=== PATIENT | female | born 1990 | race African-American/Black ===

== ENCOUNTER 2023-08-07 14:20 | Outpatient (CLI) | payer BC, SELFPAY ==
[2023-08-07 15:09] LABS: Basophils Percent Auto 0.2 % (0.2-1.2); Eosinophils Absolute Auto 0.1 K/mm3 (0-0.3); Eosinophils Percent Auto 1.1 % (0-4.4); Hematocrit 37.6 % (37.0-47.0); Hemoglobin 12.6 g/dL (12.0-15.0); Immature Granulocyte Absolute 0.03 K/mm3 (0.00-0.031); Immature Granulocyte Percent A 0.4 % (0-0.5); Lymphocytes Absolute Auto 2.12 K/mm3 (0.9-3.2); Lymphocytes Percent Auto 26.1 % (18.3-44.2); Mean Corpuscular HGB Conc 33.5 g/dl (32-36); Mean Corpuscular Hemoglobin 32.1 pg (26-34); Mean Corpuscular Volume 95.7 fl (80-100); Mean Platelet Volume 9.2 fl (7.4-10.4); Monocytes Absolute Auto 0.7 K/mm3 (0.1-0.6); Monocytes Percent Auto 8.7 % (2.6-8.5); Neutrophils Absolute Auto 5.2 K/mm3 (1.3-6.7); Neutrophils Percent Auto 63.5 % (45.5-73.1); Platelet Count Result 310 k/mm3 (150-375); Red Blood Count 3.93 M/mm3 (4.2-5.4); Red Cell Distribution Width 12.8 % (11.5-14.5); White Blood Count 8.1 K/mm3 (4.5-10.0)
[2023-08-07 16:03] LABS: HIV 1/2 Ab P24 Ag Result Negative (Negative)
[2023-08-07 16:31] LABS: Hepatitis B Surface Antigen Negative (Negative)
[2023-08-07 16:39] LABS: Hepatitis C Virus Antibody Negative (Negative)
[2023-08-07 18:02] LABS: Rubella IgG Antibody > 110.0 IU/ML
[2023-08-07 20:36] LABS: Hemoglobin A1C 4.8 % (<5.7)
[2023-08-08 15:21] LABS: Rapid Plasma Reagin Non-Reactive (NonReactive)
== END 2023-08-07 14:21 | disposition home or self-care (01) ==
PROVIDERS: PCP Family Medicine; Visit Provider Obstetrics & Gynecology
DX: Z34.82 Encounter for supervision of other normal pregnancy, second trimester (principal)
CPT/HCPCS: 36415; 83036; 85025; 86592; 86703; 86762; 86803; 86850; 86900; 86901; 87340; G0432

== ENCOUNTER 2023-11-21 17:54 | Observation (INO) | payer BC, SELFPAY ==
[2023-11-21 18:25] VITALS: BP 117/73; PULSE 79
[2023-11-21 18:29] VITALS: BMI 32.1
[2023-11-21 18:30] VITALS: BP 112/73; PULSE 88
--- NOTE | 2023-11-21 18:30 | OBADM ---
This patient, Shabbir James, admitted to the OB room OB Post 112 for observation. Patient/family oriented to hospital policies and general routines including ID bracelet, bed and alarms, visiting hours, pain management, procedures, bathroom and other care routines, personal items, smoking policy, room service/diet, and visiting hours. Patient/Family are encouraged to report perceived risks to care and to ask questions if they do not understand what they are told or what they should do.
[2023-11-21 18:42] LABS: Basophils Percent Auto 0.2 % (0.2-1.2); Eosinophils Absolute Auto 0.1 K/mm3 (0-0.3); Eosinophils Percent Auto 1.2 % (0-4.4); Hematocrit 35.2 % (37.0-47.0); Hemoglobin 11.9 g/dL (12.0-15.0); Immature Granulocyte Absolute 0.06 K/mm3 (0.00-0.031); Immature Granulocyte Percent A 0.6 % (0-0.5); Lymphocytes Absolute Auto 2.28 K/mm3 (0.9-3.2); Lymphocytes Percent Auto 23.6 % (18.3-44.2); Mean Corpuscular HGB Conc 33.8 g/dl (32-36); Mean Corpuscular Hemoglobin 33.1 pg (26-34); Mean Corpuscular Volume 97.8 fl (80-100); Mean Platelet Volume 9.5 fl (7.4-10.4); Monocytes Absolute Auto 1.1 K/mm3 (0.1-0.6); Neutrophils Absolute Auto 6.1 K/mm3 (1.3-6.7); Neutrophils Percent Auto 63.4 % (45.5-73.1); Platelet Count Result 286 k/mm3 (150-375); Red Cell Distribution Width 13.4 % (11.5-14.5); White Blood Count 9.7 K/mm3 (4.5-10.0)
[2023-11-21 18:45] VITALS: BP 119/71; PULSE 78
[2023-11-21 18:58] LABS: Alanine Aminotransferase 13 U/L (6-35); Albumin Level 3.5 g/dL (3.5-5.1); Alkaline Phosphatase 80 U/L (38-126); Amylase 91 U/L (30-110); Anion Gap 9 mmol/L (4-12); Aspartate Amino Transferase 24 U/L (14-36); Bilirubin,Total 0.2 mg/dL (0.2-1.3); Blood Urea Nitrogen 12 mg/dL (7-17); Calcium 9.2 mg/dL (8.4-10.2); Carbon Dioxide 22 mmol/L (22-30); Chloride 103 mmol/L (98-107); Estimated CRCL calculation 142 ml/min; Estimated Glomerular Filt Rate > 60; Glucose 94 mg/dL (65-110); Lipase 124 U/L (23-300); Potassium 3.9 mmol/L (3.4-5.0); Sodium 134 mmol/L (137-145)
[2023-11-21 19:00] VITALS: BP 109/67; PULSE 89
--- NOTE | 2023-11-21 19:03 | PC.NURSE ---
Call placed to Madison ROWE with Pt lab results, FHR, CTX, Vitals. Order to discharge pt home undelivered. Per Madison ROWE pt is to go home rest, take tylenol and follow up with .
--- NOTE | 2023-11-21 19:17 | PC.NURSE ---
Pt discharged home undelivered in stable condition per order from Genny Frazier CNM. Discharge instructions given and explained to pt. All questions and concerns answered. Pt waiting for spouse to come and pick her up. All belongings with pt.
--- NOTE | 2023-11-22 12:14 | P.PNOB_ITS ---
OB - Triage/Final Diagnosis Visit Information Date of evaluation: 11/21/23 Reason for evaluation: other (abd pain) Comments/Additional reasons for admission: I have assessed the risk for this patient, Shabbir James, and determined that she would benefit from observation care. Evaluation Laboratory results: Laboratory Tests 11/21/23 18:10 WBC 9.7 RBC 3.60 L Hgb 11.9 L Hct 35.2 L MCV 97.8 MCH 33.1 MCHC 33.8 RDW 13.4 Plt Count 286 MPV 9.5 Immature Gran % (Auto) 0.6 H Neut % (Auto) 63.4 Lymph % (Auto) 23.6 [place] % (Auto) 11.0 H Eos % (Auto) 1.2 Baso % (Auto) 0.2 Lymph # (Auto) 2.28 [place] # (Auto) 1.1 H Eos # (Auto) 0.1 Baso # (Auto) 0.0 Abs Immat Gran (auto) 0.06 H Absolute Neuts (auto) 6.1 Absolute Nucleated RBC 0.000 Nucleated RBC % 0.0 Sodium 134 L Potassium 3.9 Chloride 103 Carbon Dioxide 22 Anion Gap 9 BUN 12 Creatinine 0.60 L Estim Creat Clear Calc 142 Estimated GFR > 60 Glucose 94 Calcium 9.2 Total Bilirubin 0.2 AST 24 ALT 13 Alkaline Phosphatase 80 Total Protein 7.0 Albumin 3.5 Amylase 91 Lipase 124 Vital signs: Vital Signs - 24 hr 11/21/23 18:25 11/21/23 18:30 11/21/23 18:45 Pulse Rate 79 88 78 Blood Pressure 117/73 112/73 119/71 11/21/23 19:00 Pulse Rate 89 Blood Pressure 109/67
== END 2023-11-21 19:20 | disposition home or self-care (01) ==
PROVIDERS: Advanced Practice Midwife; Admitting Provider Obstetrics & Gynecology; PCP Family Medicine; Visit Provider Obstetrics & Gynecology
DX: O26.893 Other specified pregnancy related conditions, third trimester (principal); R10.9 Unspecified abdominal pain; Z3A.31 31 weeks gestation of pregnancy
CPT/HCPCS: 36415; 80053; 82150; 83690; 85025; G0378; G0379

== ENCOUNTER 2024-01-14 20:44 | Inpatient (IN) | payer BC, SELFPAY ==
[2024-01-14] VITALS (26 sets, daily range): BP systolic 98–153; BP diastolic 65–99; PULSE 63–94; TEMP 36.8; O2SAT 99–100; BMI 35.2
[2024-01-14] MEDS: LACTATED RINGERS 1,000 ML 125 ML IV CONT (21:58)
[2024-01-14] MEDS: ONDANSETRON INJ 4 MG/2 ML VIAL IV PUSH (22:05)
[2024-01-14 22:06] LABS: Basophils Percent Auto 0.1 % (0.2-1.2); Eosinophils Absolute Auto 0.1 K/mm3 (0-0.3); Eosinophils Percent Auto 1.1 % (0-4.4); Hematocrit 35.2 % (37.0-47.0); Hemoglobin 11.9 g/dL (12.0-15.0); Immature Granulocyte Absolute 0.02 K/mm3 (0.00-0.031); Immature Granulocyte Percent A 0.2 % (0-0.5); Lymphocytes Absolute Auto 2.53 K/mm3 (0.9-3.2); Lymphocytes Percent Auto 26.2 % (18.3-44.2); Mean Corpuscular HGB Conc 33.8 g/dl (32-36); Mean Corpuscular Hemoglobin 32.8 pg (26-34); Monocytes Absolute Auto 1.4 K/mm3 (0.1-0.6); Neutrophils Absolute Auto 5.6 K/mm3 (1.3-6.7); Neutrophils Percent Auto 58.4 % (45.5-73.1); Platelet Count Result 269 k/mm3 (150-375); Red Blood Count 3.63 M/mm3 (4.2-5.4); Red Cell Distribution Width 13.8 % (11.5-14.5); White Blood Count 9.7 K/mm3 (4.5-10.0)
[2024-01-14] MEDS: AMPICILLIN 2 GM/NS 100 ML 2 GM/100 ML BAG IVPB (22:09)
--- NOTE | 2024-01-14 22:15 | LDADM ---
This patient, Shabbir James, was admitted to Labor/Delivery/Recovery 103 on 01/14/24 at 20:44. Plans for labor, pain management and were discussed with patient. Patient/family oriented to hospital policies and general routines including ID bracelet, bed and alarms, visiting hours, pain management, procedures, bathroom and other care routines, personal items, smoking policy, room service/diet and guest tray routines, infant security routines, and visiting hours. Patient/Family are encouraged to report perceived risks to care and to ask questions if they do not understand what they are told or what they should do. See OBIX for further documentation.
[2024-01-14] MEDS: fentaNYL CITRATE INJ (*CRX) 100 MCG/2 ML VIAL IV PUSH (22:23)
[2024-01-14 22:30] LABS: Rapid Plasma Reagin Non-Reactive (NonReactive)
[2024-01-14 23:05] LABS: HIV 1/2 Ab P24 Ag Result Negative (Negative)
--- NOTE | 2024-01-14 23:10 | WPDANESEPP ---
Anes - Eval Pre Procedure Procedure: Labor rEpidural Date/Time: 01/14/24 23:10 Surgeon: Jefe Preop Diagnosis: Labor pain Pre Op Diagnosis: IOL Patient Data Age: 33 Gender: F Height: 1.73 m Weight: 105 kg Last Vital Signs Pulse 77 01/14/24 23:00 BP 150/91 H 01/14/24 23:00 O2 Del Method Room Air 01/14/24 22:15 Allergies Allergy/AdvReac Type Severity Reaction Status Date / Time No Known Allergies Allergy Verified 12/19/23 13:19 Home Medications Medication Instructions Recorded Confirmed Type ondansetron HCl 4 mg tablet 4 mg PO 4-6XD 11/21/23 12/19/23 History sertraline 50 mg tablet 50 mg PO DAILY 11/21/23 12/19/23 History vits no.126-ferrous fum 1 tablet PO DAILY 12/19/23 12/19/23 History 28 mg iron-folic acid 800 mcg tablet (Classic ) Laboratory Tests 01/14/24 22:00 WBC 9.7 K/mm3 (4.5-10.0) RBC 3.63 L M/mm3 (4.2-5.4) Hgb 11.9 L g/dL (12.0-15.0) Hct 35.2 L % (37.0-47.0) MCV 97.0 fl (80-100) MCH 32.8 pg (26-34) MCHC 33.8 g/dl (32-36) RDW 13.8 % (11.5-14.5) Plt Count 269 k/mm3 (150-375) MPV 10.0 fl (7.4-10.4) Immature Gran % (Auto) 0.2 % (0-0.5) Neut % (Auto) 58.4 % (45.5-73.1) Lymph % (Auto) 26.2 % (18.3-44.2) [place] % (Auto) 14.0 H % (2.6-8.5) Eos % (Auto) 1.1 % (0-4.4) Baso % (Auto) 0.1 L % (0.2-1.2) Lymph # (Auto) 2.53 K/mm3 (0.9-3.2) [place] # (Auto) 1.4 H K/mm3 (0.1-0.6) Eos # (Auto) 0.1 K/mm3 (0-0.3) Baso # (Auto) 0.0 K/mm3 (0.0-0.1) Abs Immat Gran (auto) 0.02 K/mm3 (0.00-0.031) Absolute Neuts (auto) 5.6 K/mm3 (1.3-6.7) Absolute Nucleated RBC 0.000 K/mm3 (0.0-0.012) Nucleated RBC % 0.0 % (0.0-0.2) RPR Non-reactive (NonReactive) HIV 1&2 Ab/P24 Ag 4thGn Negative (Negative) Blood Type A Positive Antibody Screen Negative : gestational age (, SAEED 01/18/24) Patient hx anesthesia problems: none Family hx anesthesia problems: none Results Review: All pre-operative results and documents have been reviewed as part of the pre-operative evaluation. [facility] Family History Family History Grandparent Acute myocardial infarction Grandparent Acute myocardial infarction Social History Social History Smoking status: Never smoker Substance use: never Do You Feel Safe in your Home?: Yes Lack of Transportation: No Lack of Food: Never True Current Housing: I Have Housing Concerned About Future Housing: No Difficulty Paying Gas/Electric Bills: No Difficulty Paying for Meds: No Currently Unemployed: No Education: Bachelor's Degree Difficulty w/ Childcare or Family Care: No Spiritual care concerns: No Exam Day of Procedure 01/14/24 23:10 Patient weight: normal Heart: regular rate and rhythm Lungs: normal air movement Airway: Mallampati scale class II Neurological: alert and oriented
[2024-01-15] VITALS (41 sets, daily range): BP systolic 111–149; BP diastolic 77–96; PULSE 55–141; RESP 16–20; TEMP 36.2–36.6; O2SAT 80–100
[2024-01-15] MEDS: LACTATED RINGERS 1,000 ML 125 ML IV CONT (00:40)
[2024-01-15] MEDS: AMPICILLIN 1 GM/NS 50 ML 1 GM/50 ML BAG IVPB (01:27)
[2024-01-15] MEDS: OXYTOCIN 30 UNITS/NS 500 ML 30 UNITS/500 ML BAG 999 UNITS IV CONT (01:59)
--- NOTE | 2024-01-15 02:08 | WPDOBADMIT ---
Obstetrics - Admit Note Admission Note: record reviewed. No pertinent additions to the history and/or any subsequent changes in the physical findings that are not consistent with the expected course of the were found. Patient presents in spontaneous labor, painful contractions; SVE 4cm on admission, expectant management Additions to the history and/or subsequent changes in the physical findings follow. None.
--- NOTE | 2024-01-15 02:09 | PM.OBPRVD ---
OB - Vaginal Delivery Note Procedure Delivery date: 01/15/24 Induction method: None Delivery monitor: External FHT and External Uterine Route of delivery: Episiotomy description: None Laceration Description: Perineal - 1st Degree (hemostatic) Specimen: No Anesthesia type: Epidural Disposition: Floor Complications: No immediate complications Narrative: See H&P and notes for details on patient's admission and labor. She progressed to complete cervical dilation and at the appropriate time began pushing. With adequate expulsive efforts by the mother, the baby's head was delivered without difficulty. Nuchal cord was not present. The baby's left shoulder was anterior and delivered under the pubic symphysis without difficulty. The posterior shoulder and the rest of the baby delivered without difficulty. The umbilical cord was doubly clamped and cut after 60 seconds of delayed cord clamping. Care of the infant was then assumed by the nursing staff. [place] Baby Date of : 01/15/24 Gestational Age by Date: 39 Infant gender: Female presentation: vertex position: Left Occiput Anterior Placenta delivery description: Expressed Cord Vessel Description: 3 Vessels and Delayed Cord Clamping
[2024-01-15] MEDS: OXYTOCIN 30 UNITS/NS 500 ML 30 UNITS/500 ML BAG 125 UNITS IV CONT (02:33)
[2024-01-15] MEDS: BENZOCAINE 20% AER SPR (*SP) 56 GM CAN 1 SPRAY TOPICAL (03:54)
[2024-01-15] MEDS: IBUPROFEN 600 MG TABLET PO ×3 (04:32→17:49)
[2024-01-15] MEDS: ACETAMINOPHEN 325 MG TABLET 650 MG PO ×3 (04:32→17:48)
--- NOTE | 2024-01-15 04:50 | PC.NURSE ---
0345- pt arrived from per WC with RN Urvashi to room 283, pt assited to bed without difficulty, left leg somewhat weak, instructed pt to not get up oob with out the assist of RN, call parra withibn reach
[2024-01-15] MEDS: MULTIVIT/MIN/PREN/FOL AC/IRON TABLET 1 TAB PO (10:24)
--- NOTE | 2024-01-15 11:00 | PC.NURSE ---
Introductions were made, then consulted with patient to assess needs related to . Discussed with mother her?plans to feed?her and the?experience so far. She says so far she doesn't have pain or any difficulties latching. She will call for a feeding check after visitors leave. Resources provided for inpatient and outpatient services with the feeding sheet, mom/baby guide and name/number written on the communication board. Mother voiced understanding of information and will call if there is a request for assistance. Reported to the Primary RN.
[2024-01-16 04:25] LABS: Hematocrit 34.5 % (37.0-47.0); Hemoglobin 11.4 g/dL (12.0-15.0)
[2024-01-16] MEDS: IBUPROFEN 600 MG TABLET PO (07:36)
[2024-01-16] MEDS: SERTRALINE HCL 50 MG TABLET PO (07:36)
[2024-01-16] MEDS: MULTIVIT/MIN/PREN/FOL AC/IRON TABLET 1 TAB PO (07:36)
[2024-01-16 07:45] VITALS: BP 119/84; PULSE 59; RESP 16; TEMP 37.2; O2SAT 100
--- NOTE | 2024-01-16 11:10 | PC.NURSE ---
Consulted with mother concerning needs and she shared her ability to independently latch infant optimally without pain. She states that the latch is good but that is less interested in since she has started supplementing with formula. We did try to latch baby but she was sleepy and didn't open wide to latch. We discussed the differences between breast and bottle and how bottle flows easily and faster. Encouraged consistently putting baby to breast if that is what her goal is an/or pumping to continue providing breast stimulation. She has a history of low milk production with her first baby but doesn't identify any risk factors for hormonal insufficiency. She pumped with her first baby for 2 months and was happy for baby to get whatever breast milk he could. She has a pump at home through her insurance. She has concerns about its efficiency, she thinks it is a Motif. Discussed how pump technology has advanced and she can use their web site and videos for use instructions and tips. If it doesn't seem to be working well, she knows we have rental pumps available. We discussed that being on a consistent schedule is the most important thing she can do to stimulate her breasts regularly for the best milk production. Mother is feeding appropriately for growth of infant and understands stimulating to eat if needed. Infant has had appropriate feedings in the last 24 hours meets the outcomes for weight, output, blood sugar and jaundice at this time. Reinforced understanding of milk production, transition of milk, signs of adequate intake, transition of stool, prevention/relief of engorgement, plugged ducts, mastitis, responsive watching for feeding cues, the different methods of stimulating to breastfeed 1-3 hours after the start of the last feeding, community resources, and when to call a provider using the resource of the feeding sheet along with the mom and baby guide. Mother voiced understanding of the information shared, is confident to continue effectively her at home, when to call for assistance, denies any additional assistance or education at this time. Reported to the Primary RN.
--- NOTE | 2024-01-16 13:04 | PM.OBPNVD ---
OB - PN: Subj Subjective Date/time seen: 01/16/24 13:04 Interval history: PPD#1 Doing well, pain controlled Voiding without issue Breast/bottle, doing well Ready for discharge home OB - PN: Obj Data Labs 01/16/24 03:49 Labs: Laboratory Results - last 24 hr 01/16/24 03:49 Hgb 11.4 L Hct 34.5 L OB - PN A/P Assessment and Plan (1) (spontaneous vaginal delivery): Code(s): O80 - Encounter for full-term uncomplicated delivery Status: Acute Plan day: 1 Plan: routine care and discharge home Time Spent With Patient Time: Total time spent is greater than 50% in coordination of care (as documented) at patient's floor/unit and/or counseling patient: Review of Systems Review of Systems: All systems reviewed & are unremarkable except as noted in HPI and below Exam Const: General: comfortable and no acute distress Orientation/consciousness: patient oriented x3 Resp: Effort & Inspection: normal respiratory effort
--- NOTE | 2024-01-16 13:08 | PM.OBDSVD ---
DS: Admitting Diagnosis Discharge Date 01/16/24 Admitting Diagnosis labor DS: Discharge Diagnosis Discharge Diagnosis (1) (spontaneous vaginal delivery): Code(s): O80 - Encounter for full-term uncomplicated delivery Status: Acute OB - DS: Summary OB Procedures : None OB Procedures Intrapartum: Spontaneous Vag Delivery OB Procedures: : None Peripartum Data Laceration Description: Perineal - 1st Degree (hemostatic) Episiotomy description: None Time Spent with Patient Time attestation: Total time spent providing and/or coordinating discharge services: DS: Data Data Completed and Pending Labs on day of discharge: Labs from last 24 hours 01/16/24 03:49 Hgb 11.4 L Hct 34.5 L Discharge Plan Discharge Attending physician on discharge: Sina Mayberry Discharging Clinician: Sina Mayberry Patient Disposition: Home, Self-Care Activity: no shower, as tolerated and pelvic rest Diet: as tolerated Patient Instructions: Antibiotic Form Stand Alone Forms: General Discharge Information Follow-up/Referrals: Sina Mayberry MD [Physician] - 4 Weeks Discharge Medications: New docusate sodium 100 mg Capsule 100 mg PO BID PRN (Reason: Constipation) Qty: 60 0RF ibuprofen 600 mg Tablet 600 mg PO Q6H PRN (Reason: Cramping) Qty: 30 0RF Continued ondansetron HCl 4 mg tablet 4 mg PO 4-6XD sertraline 50 mg tablet 50 mg PO DAILY Classic 28 mg iron- 800 mcg Tablet 1 tablet PO DAILY Date of admission: 01/14/24 20:44 Primary Care Provider: SUSHILAFREDRICK Admitting Provider: Sina Mayberry Attending physician on admission: Sina Mayberry Condition: Stable
[2024-01-17 15:28] VITALS: BP 134/82; PULSE 63; RESP 16; TEMP 36.6; O2SAT 100
== END 2024-01-16 14:11 | disposition home or self-care (01) | DRG 807 ==
LOC: ANHLDR 22:06 → ANHOB2 01-15 04:19
PROVIDERS: Admitting Provider Obstetrics & Gynecology; PCP Family Medicine; Visit Provider Obstetrics & Gynecology
DX: O69.81X0 Labor and delivery complicated by cord around neck, without compression, not applicable or unspecified (principal); Z37.0 Single live birth; Z3A.39 39 weeks gestation of pregnancy; O70.0 First degree perineal laceration during delivery
CPT/HCPCS: 36415; 85014; 85018; 85025; 86592; 86703; 86850; 86900; 86901; A9270; G0432; J0290; J2405; J2590; J2795; J3010; J7120

== ENCOUNTER 2024-04-07 02:18 | Day surgery (SDC) | payer BC, SELFPAY ==
[2024-04-01 09:36] VITALS: BMI 34.4
--- NOTE | 2024-04-01 09:42 | PC.NURSE ---
Report to the Outpatient Waiting Room, entrance under the green pavilion located off [facility], at time _1000_ on date _[id number]_. Planned Procedure Time: _1200_.? Time changes happen often and if your time is changed the preop area will call you the afternoon before. - You and your visitor will be asked to self-screen and do not enter if you have any COVID symptoms. Please call surgeon if you need to reschedule. - A mask is optional within the hospital at this time. Patients may have clear liquids (water, carbonated beverages, clear teas, apple juice) until 3 hours prior to surgery with a maximum of 20 ounces. - No food from midnight until time of surgery and no smoking. This includes no chewing gum, candy or mints. Take only the following medications with a SIP of water on the morning of surgery: ___None____ DO NOT STOP ANY OF YOUR OTHER PRESCRIPTION MEDICATIONS PRIOR TO SURGERY EXCEPT THE FOLLOWING Medications to discontinue per physician ____Vitamin Date to take last lfwl___[phone]____ Please no make-up, nail frisian, hairspray, perfume, deodorant, or body powder the day of surgery.? No jewelry (including any body piercings) or valuables the day of surgery, leave them at home.? Please take a shower or bath the night before, or the morning of, surgery with an antibacterial soap.? Wear comfortable, loose fitting clothing.? - Jewelry must be removed prior to entering the operating room.? Rings and piercings that are not removed may be cut off. - The hospital will not accept responsibility for valuables.? - Please leave all valuables, including medications, at home the day of surgery. If you are going home after surgery, a licensed line haul truck driver must drive you home.? - NO public transportation without another adult if you receive anesthesia. - We recommend that an adult stay with you for 24 hours following discharge. - We also recommend that you do not drive, make important decision, drink alcoholic beverages, or take any drugs that were not prescribed by your health care provider for at least 24 hours after your discharge time. Follow any additional instructions given to you from your surgeon. Telephone instructions given to __Shabbir__and asked if any additional questions and then verbalized understanding. Patient advised to call surgeon office or pre surgery nurse liaison [phone] if any additional questions.
[2024-04-07] VITALS (13 sets, daily range): BP systolic 113–140; BP diastolic 70–100; PULSE 73–100; RESP 12–18; TEMP 36.1–36.2; O2SAT 95–100
--- NOTE | 2024-04-07 08:06 | P.PNAN_ITS ---
Anes - Initial Pre Proc Eval Procedure: Operation Date: 04/07/24 10:00 Proposed Procedures p Laparoscopic Bilateral Salpingectomy - Sina Mayberry MD Date/Time: 04/07/24 08:06 Surgeon: Sina Mayberry MD Pre Op Diagnosis: desires sterilization Patient Data Age: 33 Gender: F Height: 1.74 m Weight: 104.5 kg Allergies Allergy/AdvReac Type Severity Reaction Status Date / Time No Known Allergies Allergy Verified 04/07/24 08:14 Home Medications ?Medication ?Instructions ?Recorded ?Confirmed ?Type sertraline 50 mg tablet 50 mg PO DAILY 11/21/23 04/01/24 History vits no.126-ferrous fum 1 tablet PO DAILY 12/19/23 04/01/24 History 28 mg iron-folic acid 800 mcg tablet (Classic ) clonazepam 1 mg tablet 1 mg PO HS 04/01/24 04/01/24 History drospirenone (contraceptive) 4 mg 1 tablet PO HS 04/01/24 04/01/24 History (28) tablet (Slynd) Patient hx anesthesia problems: none Family hx anesthesia problems: none Results Review: All pre-operative results and documents have been reviewed as part of the pre- operative evaluation. [facility] Family History Family History Grandparent Acute myocardial infarction Grandparent Acute myocardial infarction Social History Social History Smoking status: Never smoker Alcohol intake: current Substance use: never Do You Feel Safe in your Home?: Yes Lack of Transportation: No Lack of Food: Never True Current Housing: I Have Housing Concerned About Future Housing: No Difficulty Paying Gas/Electric Bills: No Difficulty Paying for Meds: No Currently Unemployed: No Education: Bachelor's Degree Difficulty w/ Childcare or Family Care: No Living arrangements: with family Spiritual care concerns: No Anes - Eval Final PreProcedure Day of Procedure 04/07/24 08:06 Patient weight: obese Heart: regular rate and rhythm Lungs: clear to auscultation Airway: Mallampati scale class II Neurological: alert and oriented Last oral intake: >/= 8 hours ASA classification: II Emergent: no Anesthetic plan: proceed Anesthesia type and monitoring: general ETT and standard monitoring Results Review: All pre-operative results and documents have been reviewed as part of the pre- operative evaluation. Informed Consent: The patient's anesthetic plan and its attendant risks and benefits were discussed with the patient/family/POA. Questions were solicited and answers pro vided to the satisfaction of the patient/family/POA.
--- NOTE | 2024-04-07 08:32 | PM.IMHP ---
H&P: HPI History of Present Illness Date/Time: 04/07/24 08:32 Chief Complaint: desires sterilization Narrative: Patient is a 33 year old female who presents for laparoscopic bilateral salpingectomy. She has completed her childbearing and desires permanent sterilization. She understands this procedure is not reversible. Denies nausea, vomiting, diarrhea, constipation, or dysuria. Review of Systems Review of Systems: All systems reviewed & are unremarkable except as noted in HPI and below PMFSH Family History Family History Grandparent Acute myocardial infarction Grandparent Acute myocardial infarction Social History Social History Smoking status: Never smoker Alcohol intake: current Substance use: never Do You Feel Safe in your Home?: Yes Lack of Transportation: No Lack of Food: Never True Current Housing: I Have Housing Concerned About Future Housing: No Difficulty Paying Gas/Electric Bills: No Difficulty Paying for Meds: No Currently Unemployed: No Education: Bachelor's Degree Difficulty w/ Childcare or Family Care: No Living arrangements: with family Spiritual care concerns: No Meds Home Medications and Allergies Home Medications ?Medication ?Instructions ?Recorded ?Confirmed ?Type sertraline 50 mg tablet 50 mg PO DAILY 11/21/23 04/07/24 History vits no.126-ferrous fum 1 tablet PO DAILY 12/19/23 04/07/24 History 28 mg iron-folic acid 800 mcg tablet (Classic ) clonazepam 1 mg tablet 1 mg PO HS 04/01/24 04/07/24 History drospirenone (contraceptive) 4 mg 1 tablet PO HS 04/01/24 04/07/24 History (28) tablet (Slynd) Allergies Allergy/AdvReac Type Severity Reaction Status Date / Time No Known Allergies Allergy Verified 04/07/24 08:14 Vital Signs Vital Signs - 24 hr 04/07/24 08:10 Temperature 97 F L Pulse Rate 85 Respiratory Rate 18 Blood Pressure 119/78 Pulse Oximetry 99 Oxygen Delivery Room Air Exam Const: General: comfortable and no acute distress HENMT: Mouth: Yes moist mucous membranes Resp: Effort & Inspection: normal respiratory effort Cardio: Rate: regular rate Skin: General skin exam: normal color Extrem: General: normal to inspection Psych: Mental Status: mental status grossly normal Assessment and Plan Assessment and plan (1) Encounter for sterilization: Code(s): Z30.2 - Encounter for sterilization Status: Acute Assessment and Plan: - patient has completed childbearing and desires permanent sterilization - discussed procedure is not reversible; patient voices understanding - will proceed with laparoscopic bilateral salpingectomy
--- NOTE | 2024-04-07 08:43 | WPDHPUPDATE1 ---
History and Physical Update Update Date/Time: 04/07/24 08:43 History and Physical has been reviewed, including an updated exam of the patient. There are NO changes in the patient's condition. Risks, benefits, and alternatives have been discussed and questions answered. Patient agrees to proceed with procedure.
[2024-04-07] MEDS: ACETAMINOPHEN 500 MG TABLET 1000 MG PO (09:00)
[2024-04-07 09:03] LABS: BEDSIDEPREGUCG Negative (Negative)
[2024-04-07] MEDS: KETOROLAC 15 MG/ML VIAL (*BKC) IV PUSH (09:15)
[2024-04-07] MEDS: LACTATED RINGERS 1,000 ML 30 ML IV CONT ×2 (09:15→11:45)
--- NOTE | 2024-04-07 10:31 | P.OP_ITS ---
Procedure Note - Detailed Date of Procedure 04/07/24 Pre-op Diagnosis desires sterilization Post-op Diagnosis Same Procedure Performed laparoscopic bilateral salpingectomy Surgeon Sina Mayberry MD Anesthesia General Findings Normal appearing uterus, bilateral fallopian tubes and ovaries Description of Procedure With IV fluids infusing, the patient was taken to the operating room. The patient was placed in supine position. General anesthesia with endotracheal in tubation was given. A time-out took place. The patient was placed in dorsal lithotomy position using Kade stirrups and she was prepped and draped in the usual sterile fashion. The bladder was drained using a red rubber catheter. A sterile speculum was placed vaginally, the anterior lip of the cervix was grasped with a single-tooth tenaculum and the acorn uterine manipulator was placed without difficulty. The speculum was removed. The surgeon's gloves were changed and attention was turned to the abdomen. A 5 mm incision was made in the umbilicus. Under direct visualization with the scope, the umbilical port was inserted without difficulty. Another two trocars were placed under direct visualization in the left upper and lower quadrants. Just prior to placement of the left lower quadrant port, the inferior epigastric vessels were seen in the trajectory of the trocar. The trocar was removed, no injury to inferior epigastric vessels, and another incision was made avoiding the vessels. The trocar was then placed without issue. The patient was placed in Trendelenburg and inspection of the pelvis noted the above findings. Appropriate pictures were taken. Using the LigaSure devise, a left salpingectomy was performed in the usual fashion. Care was taken to avoid the IP ligament. The salpingectomy went smoothly. The same procedure was repeated on the right side. The instruments were all removed from the abdomen and the CO2 gas was allowed to escape. The four skin incisions were reapproximated with 4-0 Polysorb in a subcuticular manner, followed by skin glue. The acorn manipulator and single tooth tenaculum was removed from the uterus and cervix, respectively. The tenaculum sites were hemostatic. All instruments were removed from the vagina. At the end of the case, instrument, sponge and needle counts were correct x 2. The patient was awakened from general anesthesia and was taken to PACU in stable condition. Estimated Blood Loss 5 Pathology Yes Complications No immediate complications Condition Stable Disposition Same day
[2024-04-07] MEDS: fentaNYL CITRATE INJ (*CRX) 100 MCG/2 ML VIAL 25 MCG IV PUSH ×8 (10:58→11:21)
[2024-04-07] MEDS: HYDROmorphone HCL INJ (*CRX) 1 MG/ML SYR 0.5 MG IV PUSH ×4 (11:35→11:55)
[2024-04-07] MEDS: oxyCODONE HCL (*CRX) 5 MG TAB IR PO (12:25)
--- OUTSIDE RECORDS SUMMARY | 2024-04-10 11:13 | XMS_ITS | Encounter Summary ---
Author Organization [facility] Address [address] [place] [address]. [place] [address] [place] [address] Care Team Providers Care Shellfish Sorter Name Role Phone Eladio Garcia MD Primary Care Provider + Encounter Details Date Type Department Care Team (Late st Contact Info) Description 11/30/2020 Design Clinicals Message [facility] [address] [place] [address] [place], [facility] Provider referral Social History Tobacco Use Types Packs/Day Years Used Date Smoking Tobacco: Never Smokeless Tobacco: Never Alcohol Use Standard Drinks/Week Comments Yes 0 (1 standard drink = 0.6 oz pur e alcohol) occasionally PHQ-2 Answer Date Recorded PHQ-2 Score - If the patient scores above 3, please move on to questions 3-9 6 08/11/2020 Comments No Sex and Gender Information Value Date Recorded Sex Assigned at Not on file Legal Sex Female 7:31 PM CDT Gender Identity Not on file Sexual Orientation Not on file documented as of this encounter Plan of Treatment Not on file documented as of this encounter Visit Diagnoses Not on filedocumented in this encounter Additional Health Concerns Assessment Noted Time PHQ-9 Depression Total Score: 20 021 4:14 PM CDT documented as of this encounter Care Teams Shellfish Sorter Relationship Specialty Start Date End Date Eladio Garcia MD [address] [place] [address] PCP - General FAMILY PRACTICE 02/08/18 documented as of this encounter
--- OUTSIDE RECORDS SUMMARY | 2024-04-10 11:13 | XMS_ITS | Encounter Summary ---
Author Organization [facility] Address [address] [place] [address]. [place], [place] [id number] [place] [address] Care Team Providers Care Physician/Allergy/Immunology Name Role Phone Eladio Garcia MD Primary Care Provider + Encounter Details Date Type Department Care Team (Late st Contact Info) Description 05/23/2022 Schedulize Message [facility] [address] [place] [address] Eladio Garcia MD [address] [place] [address] Weight loss meds Social History Tobacco Use Types Packs/Day Years Used Date Smoking Tobacco: Never Smokeless Tobacco: Never Alcohol Use Standard Drinks/Week Comments Yes 0 (1 standard drink = 0.6 oz pur e alcohol) occasionally PHQ-2 Answer Date Recorded Patient Health Questionnaire-2 Score 0 05/15/2022 Comments No Sex and Gender Information Value Date Recorded Sex Assigned at Not on file Legal Sex Female 7:31 PM CDT Gender Identity Not on file Sexual Orientation Not on file COVID-19 Exposure Response Date Recorded In the last 10 days, have yo u been in contact with someone who was confirmed or suspected to have Coronavirus/COVID-19? No / Unsure 05/15/2022 1:54 PM CURRENCY EXAMINER documented as of this encounter Progress Notes * Iraida Reyes MA - 05/24/2022 2:14 PM CST Script sent to [facility] in [place] and patient informed. ENCY EXAMINER documented in this encounter Plan of Treatment Not on file documented as of this encounter Visit Diagnoses Not on filedocumented in this encounter Additional Health Concerns Assessment Noted Time PHQ-9 Depression Total Score: 0 02/29/20 21 10:07 AM CURRENCY EXAMINER documented as of this encounter Care Teams Physician/Allergy/Immunology Relationship Specialty Start Date End Date Eladio Garcia MD [address] [address] PCP - General FAMILY PRACTICE 02/08/18 documented as of this encounter
--- OUTSIDE RECORDS SUMMARY | 2024-04-10 11:13 | XMS_ITS | Clinical Summary ---
Author Organization [facility] Address [facility] [facility] [place] [address] [place] [address] Care Team Providers Care Health Assistant Name Role Phone Eladio Garcia MD Primary Care Provider + Allergies Active Allergy Reactions Criticality Noted Date Comments Buspirone Rash Low 10/19/2014 Medications ondansetron (ZOFRAN) 4 MG tablet take 1 tablet by mouth every 4 to 6 hours 4 Active sertraline (ZOLOFT) 50 MG tabletIndicatio ns:Mood disorder (CMS/HCC) Take 1 tablet (50 mg total) by mouth daily. 90 tablet 1 4 Active clonazePAM (KLONOPIN) 1 MG tabletIndicatio ns:Primary insomnia Take 1 tablet (1 mg total) by mouth nightly as needed for Anxiety. 30 tablet 5 Active semaglutide-herber ght management (WEGOVY) 0.25 mg/dose injection (PEN)Indication s:Weight Loss Inject 0.25 mg into the skin once a week. Indications: Weight Loss 2 mL 5 Active tirzepatide (MOUNJARO) 2.5 MG/0.5ML injectionIndica tions:Diabetes Mellitus Inject 2.5 mg into the skin every 7 days. Indications: Diabetes 2 mL 5 04/02/19 25 Discontinu ed(Insuran ce denial) Active Problems Problem Noted Date Diagnosed Date Infertility due to oligo-ovulation 05/15/2022 Mood disorder 10/26/2021 Anxiety disorder, unspecified 07/17/2016 Resolved Problems Problem Noted Date Diagnosed Date Resolved Date Perianal mass 08/20/2020 08/31/2020 Encounters Date Type Department Care Team Description 04/02/2024 MyChart Message [facility] [place] [id number] [place] [address] Eladio Garcia MD Insurance declined 03/27/2024 10:20 AM VIAL GAUGER Office Visit [place] [address] [place] [address] Eladio Garcia MD Weight Problem (Weight loss and sleep problem ) 03/27/2024 Travel 01/16/2024 Scan [facility] Scanned, [facility] 01/14/2024 Scan [facility] Scanned, [facility] from Last 3 Months Immunizations Name Administration Dates Next Due HPV 05/18/2008,01/27/2008,11/21/2007 MMR 06/01/2008 Tdap (Generic) 07/12/2015,03/17/2013 Family History Medical History Relation Comments Diabetes Maternal Grandfather Heart Disease Maternal Grandfather Heart Disease Maternal Grandmother Asthma Mother Hypertension Mother Diabetes Paternal Grandfather Relation Status Comments Maternal Grandfather Maternal Grandmother Mother Paternal Grandfather Social History Tobacco Use Types Packs/Day Years Used Date Smoking Tobacco: Never Smokeless Tobacco: Never Tobacco Cessation:Counseling Given: Not Answered Alcohol Use Standard Drinks/Week Comments Yes 0 (1 standard drink = 0.6 oz pur e alcohol) occasionally PHQ-2 Answer Date Recorded Patient Health Questionnaire-2 Score 0 03/27/2024 Comments No Sex and Gender Information Value Date Recorded Sex Assigned at Not on file Legal Sex Female 7:31 PM CDT Gender Identity Not on file Sexual Orientation Not on file Last Filed Vital Signs Vital Sign Reading Time Taken Comments Blood Pressure 112/64 03/27/2024 10:33 AM VIAL GAUGER Pulse 71 03/27/2024 10:33 AM VIAL GAUGER Temperature 36.7 ??C (98.1 ??F) 03/27/2024 1 0:33 AM VIAL GAUGER Respiratory Rate 20 03/27/2024 10:3 3 AM VIAL GAUGER Oxygen Saturation 97% 03/27/2024 10: 33 AM VIAL GAUGER Inhaled Oxygen Concentration - - Weight 106.8 kg (235 lb 6.4 oz) 025 10:33 AM VIAL GAUGER Height 175.3 cm (5' 9 ) 03/27/2024 10:3 3 AM VIAL GAUGER Body Mass Index 34.76 03/27/2024 10:33 AM VIAL GAUGER Plan of Treatment Health Maintenance Due Date Last Done Comments Annual Physical 1993 Hepatitis B Vaccines (1 of 3 - 19+ 3-dose series) 2009 COVID-19 Vaccine (2023-2 5 season) 2023 Influenza Adult (#1) 2023 PHQ-2 (Physician [place]) 03/27/2025 03/27/2024 DTaP, Tdap and Td Vaccines ( 3 - Td or Tdap) 07/11/2025 07/12/2015, 03/17/2013 Cervical Cancer Screening Pa p Smear (Age 30 to 64) Every 3 Years 12/27/2026 12/28/2023 Cervical Cancer Screening Pa p with HPV Testing (Age 30 to 64) Every 5 Years 12/27/2028 12/28/2023 Cervical Cancer Screening wi th HPV 12/27/2028 HPV Vaccines Completed 05/18/2008, 01/27/2008, 11/21/2007 Hepatitis C Completed 08/07/2023 Meningococcal B Vaccine Aged Out No l onger eligible based on patient's age to complete this topic Meningococcal Vaccine Aged Out No amrit eneida eligible based on patient's age to complete this topic Pneumococcal Vaccine: Pediatrics (0 to 5 Years) and At-Risk Patients (6 to 64 Years) Aged Out No longer eligible b ased on patient's age to complete this topic RSV Immunizations Under 20 Months Aged Out No longer eligible b ased on patient's age to complete this topic Procedures Procedure Name Priority Date/Time Associated Diagnosis Comments HEP C SCANNED ORDERS Routine 08/07/2023 from Last 3 Months or Most Recently Relevant to Health Maintenance Results * HEP C SCANNED ORDERS (08/07/2023) [facility] Scanned SCANNING Final Resu lt [facility] from Last 3 Months or Most Recently Relevant to Health Maintenance Insurance [facility] Care Teams Health Assistant Relationship Specialty Start Date End Date Eladio Garcia MD [address] [facility] [address] [place] [id number] PCP - General FAMILY PRACTICE 02/08/18
--- OUTSIDE RECORDS SUMMARY | 2024-04-10 11:13 | XMS_ITS | Data Portability ---
Author Organization [facility], [facility] Address [address] [place] [address] Care Team Providers Care Personnel Security Assistant Name Role Phone FREDRICK BHAT Primary Care Provider Assessment Encounter Date Assessment Date Assessment LastModified by Organization Details LastModified Time 01/04/2024 01/04/2024 Patient is __37_weeks . Discussed plan. Not available 01/04/2024 10:46:42 Plan of Treatment Reminders Order Date Submit Date Provider Last Modified By Organization Details Last Modified Time Details Appointments SURG POST OP 2024 08:45A Ronald GALVAN MD Not available Not available Not available Lab None recorded. Referral None recorded. Procedures None recorded. Surgeries salpingec cristina, laparosco pic (SURG) 2023 024 [facility] [facility], [facility] [address], [address], 03/06/2024 15:14:07 Imaging None recorded. Medication Orders None recorded. Patient TargetsNo targets recorded. Patient InstructionsNo instructions recorded. Reason for Referral None Reported. Results Created Date Observation Date Name Description Value Unit Range Abnormal Flag Note LastModifiedBy Organization Detail LastModifiedTime 12/28/19 24 12/28/2023 CULTU RE: URINE result report SEE RESULT S BELOW Test: Cultu re: Urine Speci men Sourc e: Urine - Clean Catch Speci men Type: Urine Speci men Date: 12/27 1335 Resul t Date: 12/29 0610 Resul t Statu s: Final resul t Abnor mal: No Resul ting Lab: [facility] [address] [facility] [address] Tel: CULTU RE ----- ----- ----- --- No growt h in 1 day (dete ction level of 10,00 0 colon ies / ml.) Not Available [facility] (Lab) [address] [facility], [place], [address], 12/31/2023 12:38:24 12/28/19 24 12/28/2023 CT/GC AND TRICH OMONA S VAGIN AYESHA (RRNA ), URINE chlamydia trachomatis, PCR Negati ve negati ve Not Available [facility] (Lab) [address] [facility], [place], [address], 12/31/2023 12:38:24 12/28/19 24 12/28/2023 CT/GC AND TRICH OMONA S VAGIN AYESHA (RRNA ), URINE neisseria gonorrhoeae, PCR Negati ve negati ve Not Available [facility] (Lab) [address] [facility], [place], [address], 12/31/2023 12:38:24 12/28/19 24 12/28/2023 CT/GC AND TRICH OMONA S VAGIN AYESHA (RRNA ), URINE trichomonas vaginalis ribosomal RNA (rrna) Negati ve negati ve Not Available [facility] (Lab) [address] [facility], [place], [address], 12/31/2023 12:38:24 12/28/19 24 12/28/2023 CULTU RE: GROUP B STREP SCREE N, REFLE X SUSCE PTIBI LITY result report SEE RESULT S BELOW abnormal Test: Cultu re: Group B Strep , Refle x Susce ptibi lity ([facility]/ [facility] ) Speci men Sourc e: Vagin a/Rec randall Speci men Type: Vagin al/Re ctal Speci men Date: 12/27 1334 Resul t Date: 01/01 1544 Resul t Statu s: Final resul t Abnor mal: Yes Resul trino Lab: [facility] [address] [facility] [address] Tel: CULTU RE ----- ----- ----- --- Posit neha for Strep tococ cus agala ctiae (Grou p B) (Abno rmal) Clind amyci n = resis tant, eryth romyc in = resis tant. Cefaz lilia may be used for intra partu m proph ylaxi s in penic illin -justino rgic women at low risk, and Vanco mycin is recom darshan d for women at high risk for anaph ylaxi s. Jelly tom ng is not neces norris for these drugs . Not Available [facility] (Lab) [address] [facility], [place], [address], 01/02/2024 16:47:26 12/28/19 24 12/28/2023 drug scree n, urine Amphetamines : negati ve Not Available [place] [address], [place], [address], 12/28/2023 12:23:51 12/28/19 24 12/28/2023 drug scree n, urine Cannabinoids : negati ve Not Available [facility] [address], [place], [address], 12/28/2023 12:23:51 12/28/19 24 12/28/2023 drug scree n, urine Cocaine: negati ve Not Available [facility] [address], [place], [address], 12/28/2023 12:23:51 12/28/19 24 12/28/2023 drug scree n, urine Opiates: negati ve Not Available [facility] [address], [place], [address], 12/28/2023 12:23:51 12/28/19 24 12/28/2023 drug scree n, urine Phenocyclidi ne: negati ve Not Available [facility] [address], [place], [address], 12/28/2023 12:23:51 12/28/1912/28/2023 drug scree n, urine Barbiturates : negati ve Not Available [facility] [address], [place], [address], 12/28/2023 12:23:51 12/28/1912/28/2023 drug scree n, urine Benzodiazepi elmer: negati ve Not Available [facility] [address], [place], [address], 12/28/2023 12:23:51 12/28/1912/28/2023 drug scree n, urine Ethanol: negati ve Not Available [facility] [address], [place], [address], 12/28/2023 12:23:51 12/28/1912/28/2023 drug scree n, urine Hallucinogen s: negati ve Not Available [facility] [address], [place], [address], 12/28/2023 12:23:51 12/28/1912/28/2023 drug scree n, urine Inhalants: negati ve Not Available [facility] [address], [place], [address], 12/28/2023 12:23:51 12/28/1912/28/2023 drug scree n, urine Anabolic Steroids: negati ve Not Available [facility] [address], [place], [address], 12/28/2023 12:23:51 12/28/19 24 12/28/2023 drug scree n, urine Other: negati ve Not Available [facility] [address], [place], [address], 12/28/2023 12:23:51 12/28/1912/28/2023 US, obste tric, follo w-up No observ ation record ed. [email or web address] [place] [address], [place], [address], 12/28/2023 17:17:53 12/28/1912/28/2023 US, obste tric, follo w-up No observ ation record ed. [email or web address] [address], [place], [address], 12/31/2023 10:37:45 01/11/20 24 01/11/2024 US, obste tric, limit ed No observ ation record ed. [email or web address] [address], [place], [address], 01/12/2024 18:01:24 Result Notes None recorded. Problems Name Problem SNOMED Code Status Onset Date Resolution Date Notes Provider Name and Address Organization Details Recorded Time Pregnanc y 94836822 Completed 202301/21/2024 Gonsalo coates, [facility] 4 14:34:27 Low lying placenta 665593569 Completed 2023 RESOLVED Belia coates [facility] 4 11:10:06 Anxiety in pregnanc y 24705327950 109 Completed sertrali ne 50mg Belia [facility] 4 11:10:06 Marginal insertio n of umbilica l cord 15238930 Completed serial growth Belia coates [facility] 4 11:10:06 Marginal insertio n of umbilica l cord 25849239 Active serial growth Belia coates [facility] 4 11:10:06 Anxiety in pregnanc y 95114835823 109 Active sertrali ne 50mg Belia coates [facility] 4 11:10:06 Problem Notes None recorded. Procedures Surgical History Date Name Laterality Status Provider Name and Address Organization Details Recorded Time 2022 Date of Last Pap Smear completed Elina Lanza [facility] 06/12/2023 12:57:56 2021 biopsy of rectum completed [facility] 12/28/2023 12:22:08 2015 Tonsillectomy completed [facility] 12/28/2023 12:21:13 2014 hysterosalpingography completed [facility] 12/28/2023 12:21:02 2014 [facility] of wisdom tooth [facility] 12/28/2023 12:21:22 Imaging Results Imaging Date Name Status LastModified by Organiz ation Details LastModified Time 12/28/2023 US, obstetric, follow-up completed [place] [address], [place], [address], 12/28/2023 17:17:53 12/28/2023 US, obstetric, follow-up completed [email or web address] [address], [place], [address], 12/31/2023 10:37:45 01/11/2024 US, obstetric, limited completed [address], [place], [address], 01/12/2024 18:01:24 Procedure Notes None recorded. Medical Equipment None Reported. Allergies No known drug allergies Medications Name Sig Start Date Stop Date Status Note LastModified by Organization Details LastModified Time ibuprofen 800 mg tablet TAKE 1 TABLET BY MOUTH EVERY 8 HOURS NEEDED . APPOINTME NT REQUIRED FOR FUTURE REFILLS 06/11 completed Not Available Not Available Not Available ondansetron HCl 4 mg tablet Take 1 tablet every 4-6 hours by oral route. 2024 active Not Available Not Available Not Avai lable clonazepam 1 mg tablet TAKE 1 TABLET BY MOUTH NIGHTLY NEEDED FOR ANXIETY active Not Available Not Available No t Available phentermine 37.5 mg tablet 06/11 completed Not Available Not Available Not Available clonazepam 2 mg tablet TAKE 1 TABLET BY MOUTH NIGHTLY NEEDED 06/11 completed Not Available Not Available Not Available docusate sodium 100 mg capsule TAKE 1 CAPSULE BY MOUTH TWICE DAILY NEEDED FOR CONSTIPAT ION active Not Available Not Available No t Available ibuprofen 600 mg tablet TAKE 1 TABLET BY MOUTH EVERY 6 HOURS NEEDED FOR CRAMPS active Not Available Not Available No t Available sertraline 50 mg tablet TAKE 1 TABLET BY MOUTH ONCE DAILY active Not Available Not Available No t Available Sprintec (28) 0.25 mg-35 mcg tablet TAKE 1 TABLET BY MOUTH ONCE DAILY 06/11 completed Not Available Not Available Not Available active Not Available Not Avai lable Not Available Wegovy 0.25 mg/0.5 mL subcutaneou s pen injector active Not Available Not Available Not Available Mounjaro 15 mg/0.5 mL subcutaneou s pen injector INJECT 15MG SUBCUTANE OUSLY EVERY WEEK 06/11 completed Not Available Not Available Not Available Mounjaro 10 mg/0.5 mL subcutaneou s pen injector INJECT 10 MG SUBCUTANE OUSLY EVERY WEEK 06/11 completed Not Available Not Available Not Available Mounjaro 12.5 mg/0.5 mL subcutaneou s pen injector INJECT 12.5MG SUBCUTANE OUSLY EVERY WEEK 06/11 completed Not Available Not Available Not Available Vitals Date Recorded Body height Body mass index (BMI) Body weight Systolic blood pressure Diastolic blood pressure Provider Name and Address Organization Details Last Updated DateTime 01/04/2024 173.99 cm 35.1 kg/m2 175959.6 1 g 118 mm[Hg] 81 mm[Hg] Mariann Conte [facility] 4 10:28:20 Date Recorded Body height Body mass index (BMI) Body weight Systolic blood pressure Diastolic blood pressure Provider Name and Address Organization Details Last Updated DateTime 01/11/2024 173.99 cm 35.5 kg/m2 776806.3 9 g 122 mm[Hg] 82 mm[Hg] Ching Riley [facility] 4 11:11:09 Date Recorded Body height Body mass index (BMI) Body weight Systolic blood pressure Diastolic blood pressure Provider Name and Address Organization Details Last Updated DateTime 02/11/2024 173.99 cm 34.5 kg/m2 860025.2 5 g 135 mm[Hg] 83 mm[Hg] Ching Lin [facility] 14:30:13 Social History Question Answer Notes LastModified by Organizat ion Details LastModified Time Tobacco Smoking Status Never Smoker Mariann coates [facility] 12/28/2023 12:20:45 What Is Your Level Of Alcohol Consumption? None Information not available 07/13/2023 If You Are , What Was Your Level Of Alcohol Consumption Prior To ? Occasional [email or web address] Information not available 11/30/2023 Are You Blind Or Do You Have Difficulty Seeing? No Information not available 07/13/2023 What Is Your Level Of Caffeine Consumption? None Information not available 07/13/2023 How Much Tobacco Do You Chew? None Information not available 07/13/2023 In The 14 Days Before Symptom Onset, Have You Had Close Contact With A Laboratory-confir med COVID-19 While That Case Was Ill? No Information not available 07/13/2023 In The 14 Days Before Symptom Onset, Have You Had Close Contact With A Person Who Is Under Investigation For COVID-19 While That Person Was Ill? No Information not available 07/13/2023 Have You Been To An Area Known To Be High Risk For COVID-19? No Information not available 07/13/2023 Are You Deaf Or Do You Have Serious Difficulty Hearing? No Information not available 07/13/2023 What Type Of Diet Are You Following? REGULAR Information not available 07/13/2023 What Is The Highest Grade Or Level Of School You Have Completed Or The Highest Degree You Have Received? 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 No Information not available 07/13/2023 Do You Use Protection During Sex? No Information not available 07/13/2023 Do You Use Your Seat Belt Or Car Seat Routinely? Yes Information not available 07/13/2023 Do You Have Smoke And Carbon Monoxide Detectors In Your Home? Yes Information not available 07/13/2023 How Much Tobacco Do You Smoke? No Information not available 07/13/2023 Do You Feel Stressed (tense, Restless, Nervous, Or Anxious, Or Unable To Sleep At Night)? [id number] Information not available 07/13/2023 Do You Use Any Illicit Or Recreational Drugs? No Information not available 07/13/2023 Do You Use Sunscreen Routinely? No Information not available 07/13/2023 Has Tobacco Cessation Counseling Been Provided? No [email or web address] Information not available 12/28/2023 Have You Used IV Drugs? No Information not available 07/13/2023 Do You Or Have You Ever Used Any Other Forms Of Tobacco Or Nicotine? No [email or web address] Information not available 12/28/2023 Sex: Unknown Functional Status Question Answer Note LastModified by Organizat ion Details LastModified Time Do you have difficulty walking or climbing stairs? No [email or web address] Information not available 11/30/2023 Are you able to walk? [email or web address] Information not available 07/13/2023 Are you able to care for yourself? Yes Information not available 11/30/2023 Do you have difficulty dressing or bathing? No Information not available 11/30/2023 What is your exercise level? Moderate Information not available 07/13/2023 Mental Status None recorded. Family History Relationship Description Onset Age of this Age Resolved Age Notes LastModified by Organization Details LastModified Time Mother Asthma [email or web address] Not available 13:00:34 Maternal Grandfather Diabetes mellitus [email or web address] Not available 12/27 12:19:38 Maternal Grandfather Congestive heart failure [email or web address] Not available 2023 14:13:32 Maternal Grandfather Heart disease [email or web address] Not available 12/27 12:20:20 Maternal Grandmother Congestive heart failure [email or web address] Not available 2023 14:13:32 Maternal Grandmother Heart disease [email or web address] Not available 12/27 12:20:20 Maternal Aunt Congestive heart failure [email or web address] Not available 2023 14:13:32 Maternal Aunt Heart disease [email or web address] Not available 12/27 12:20:20 Maternal Aunt Female infertility [email or web address] Not available 01/18 14:13:32 Maternal Uncle Congestive heart failure Not available 2023 14:13:32 Maternal Uncle Heart disease [email or web address] Not available 12/27 12:20:20 Medical History Condition Response Allergies (Food, seasonal, environmental ) N Other N Breast Cancer N Drug/Latex Allergies/Reactions N Blood Transfusion N Lung Disease N Dermatologic Disorders N Defects or Inherited Disease N Breast Problem N Gestational Diabetes N Hematologic disorders N Anesthesia Complications N History of STI N Deep Vein Thrombosis N Polycystic ovary syndrome N Anxiety Disorder Y Autoimmune disease N Arthritis N Infertility N Polyps N Acid Reflux (GERD) N History of abnormal pap N Cancer N Stroke N Varicosities N Neurologic/Epilepsy N Endometriosis N High Cholesterol N Headaches N Fibromyalgia N Kidney Disease N Heart Problems N Kidney or Bladder Problems N Thyroid Problems N GI Problems Y Eating Disorder N Anemia N Art (IVF or FET) N Psychiatric Illness N Ovarian Cancer N Diabetes N Pulmonary (TB, Asthma) N Hepatitis/Liver Disease N No Past Medical History N Eczema N Urinary Tract Infection N Abuse/Domestic Violence N Asthma N Trauma/Violence N Depression/ depression Y Heart Disease N Pre-Eclampsia N Hypertension N Osteoporosis N Thrombophilias N Gynecological History Statement/Question Response Date of Last Mammogram Date of LMP 04/09/2023 STIs/STDs N HPV Vaccine Y Current Control Method None Date of Last Colonoscopy Sexually Active? Y Date of DEXA bone scan Date of Last Pap Smear 03/19/2022 Sexual Problems? N Desired Control Method None LMP Definite Obstetrics History GPAL:G 2 P 2 0 0 2 Type Value Full Term 2 Living 2 Total 2 Past Encounters Encounter ID Performer Location Encounter Start Date Encounter Closed Date Diagnosis/Indication Diagnosis SNOMED-CT Code Diagnosis ICD10 Code Diagnosis Note [id number] [facility] [address],[place] [address] 06/12/2023 12:33:42 06/12/2023 13:13:23 Uterine size for dates discrepancy 339405129 O26.841 Z3A.08 [id number] ELOISE GALVAN MD [facility] [address],[place] [address] 06/12/2023 12:45:20 06/12/2023 13:46:05 test positive 483280291 Z32.01 1. Exam today within normal limits.2. Ultrasound today confirms GA and viability. EDC . GC/Clamydi a testing done: will f/u as indicated. 4. ACOG guidelines and plan of care for reviewed with patient. All questions answered.5 . Return to office at 12 weeks for new OB visit6. Will need new OB labs at next visit.7. Genetic screening: desires, paperwork given. [id number] [facility] [address],[place] [address] 07/13/2023 11:58:56 07/13/2023 14:29:51 screening 260101088 Z36.82 Gestation period, 12 weeks 47749574 Z3A.12 [id number] ELOISE GALVAN MD [facility] [address],[place] [address] 07/13/2023 11:59:39 07/18/2023 02:54:12 Mixed anxiety and depressive disorder 941390115 F41.8 Gestation period, 13 weeks 43094089 Z3A.13 [id number] Zenia Modi [facility] [address],[place] [address] 08/07/2023 14:16:25 08/07/2023 15:25:09 Spotting per vagina in 937651940 O26.852 Z3A.16 [id number] ELOISE GALVAN MD [place] [address],[place] [address] 08/14/2023 09:53:07 08/14/2023 10:51:46 Dizziness 106181981 R42 Spotting p er vagina in 890030641 O26.859 Gestation period, 17 weeks 06883283 Z3A.17 Mixed anxi ety and depressive disorder 921864015 F41.8 [id number] [facility] [address],[place] [address] 09/04/2023 15:19:00 09/04/2023 16:53:20 screening for malformation 213512206 Z36.3 [id number] ELOISE GALVAN MD [place] [address],[place] [address] 09/04/2023 15:19:47 09/04/2023 23:12:16 [id number] ELOISE GALVAN MD [facility] [address],[place] [address] 09/10/2023 10:41:06 09/10/2023 11:08:58 Anxiety in 7340420272 9109 F41.9 Marginal i nsertion of umbilical cord 93845679 O43.129 [id number] [facility] [address],[place] [address] 10/05/2023 09:58:45 10/05/2023 10:34:31 Marginal insertion of umbilical cord 82078814 O43.129 Z3A.24 [id number] ELOISE GALVAN MD [facility] [address],[place] [address] 10/05/2023 09:59:32 10/05/2023 11:10:48 Marginal insertion of umbilical cord 15961133 O43.129 Anxiety in 798 8616594 9109 F41.9 Gestation period, 24 weeks 395098063 Z3A.24 [id number] [facility] [address],[place] [address] 10/29/2023 09:35:54 10/29/2023 10:10:24 Marginal insertion of umbilical cord 08152633 O43.129 Z3A.27 [id number] Tushar Claire MD [place] [address],[place] [address] 10/29/2023 09:38:26 10/29/2023 11:16:32 Routine care 365507268 Z34.92 [id number] Tushar Claire MD [facility] [address],[place] [address] 11/13/2023 09:35:20 11/13/2023 09:58:18 Routine care 684136262 Z34.92 [id number] Zenia Modi [facility] [address],[place] [address] 11/30/2023 09:01:40 11/30/2023 09:31:12 Placental condition affecting management of mother 589111221 O43.103 Z3A.32 [id number] [facility] [address],[place] [address] 11/30/2023 09:02:07 11/30/2023 09:58:26 Routine care 317619309 Z34.93 [id number] ELOISE GALVAN MD [place] [address],[place] [address] 12/14/2023 09:53:41 12/14/2023 10:49:37 Anxiety in 2729595016 9109 F41.9 Marginal i nsertion of umbilical cord 62666682 O43.129 Z3A.27 Gestation period, 34 weeks 71897661 Z3A.34 [id number] Delma Navarro [facility] [address],[place] [address] 12/28/2023 11:00:41 12/28/2023 11:47:27 Marginal insertion of umbilical cord 44164885 O43.129 Z3A.36 [id number] Grecia Frazier CNM [place] [address],[place] [address] 12/28/2023 11:01:09 12/28/2023 12:34:39 Gestation period, 36 weeks 12926471 Z3A.36 Routine an tenatal care 803893678 Z34.93 Venereal d isease screening 835406576 Z11.3 [id number] Grecia Frazier CNM [facility] [address],[place] [address] 01/04/2024 09:59:43 01/04/2024 10:52:59 Routine care 947439186 Z34.93 [id number] Delma Navarro [facility] [address],[place] [address] 01/11/2024 10:39:56 01/11/2024 11:07:35 [id number] ELOISE GALVAN MD [facility] [address],[place] [address] 01/11/2024 10:41:13 01/11/2024 11:35:20 Anxiety in 8635554619 9109 F41.9 Marginal i nsertion of umbilical cord 42983649 O43.129 Gestation period, 38 weeks 22700306 Z3A.38 [id number] ELOISE GALVAN MD [facility] [address],[place] [address] 02/11/2024 14:13:28 02/11/2024 15:18:33 care 715024221 Z39.2 S/p 4 weeks ago here today for a visit.1. Patient recovering well2. Plans to continue combo feeding3. Interested in tubal ligation for contracept ion at this time. Risks, benefits, and alternativ es reviewed with the patient. Will call to schedule when she has discussed further with her partner. POPs given today.4. Patient instructed to follow up in 6-12 months for well woman exam unless need arises prior Health Concerns Section Related Observation LastModified by Organization Detai ls LastModified Time None Recorded Concern Status LastModified by Organization Details LastModified Time None Recorded Advance Directives Directive None Recorded Payers Encounter Date Sequence Insurance Name Policy Number Policy Taylor Covered Member ID Taylor Member ID Guarantor Name 01/04/2024 2 [place] [id number] Shabbir James [id number] Shabbir James 01/04/2024 1 [place] [id number] Santiago James [id number] Shabbir James 01/11/2024 2 [place] [id number] Shabbir James [id number] Shabbir Erika 01/11/2024 1 [place] [id number] Santiago James [id number] Shabbir James 01/11/2024 2 [place] [id number] Shabbir James [id number] Shabbir Erkia 01/11/2024 1 [place] [id number] Santiago James [id number] Shabbir James 02/11/2024 2 [place] [id number] Shabbir James [id number] Shabbir James 02/11/2024 1 [place] [id number] Santiago James [id number] Shabbir James Notes Date Note Type Note Provider Name and Address Organization Details Recorded Time 02/11/2024 text/html S/P on 01/14 at 39 weeks gestation. was complicated by anxiety and marginal cord insertion. ??Complications with delivery: none. Patient denies any specific problems since delivery.?? Patient overall feeling well. Patient is combo feeding without problems. Has not had a period yet. ??Minimal bleeding. Bowel and bladder function are normal. Pap due 2025. Denies any signs or symptoms of depression. Is coping with parenting well. Patient has not been sexually active since delivery. Patient is interested in contraception at this time.?? ELOISE GALVAN MD [address], [place], [address], [place] [facility] 02/11/2024 15:16:13 OBGyn Episode Ob Episode Information Episode Created Date Number of Fetuses Patient Bloodtype Patient rh Status Prepregnancy Weight lbs Domestic Partner Domestic Partner Phone Father Name Technical Research Scientist Status 06/12/19 24 1 CLOSED Fetus Data First Name Last Name Admitted to NICU Weight (g) Sex Living Outcome Pediatric Complications Fetus ID Race Codes Race Delivery Type 3572.03 7 M Full Term [id number] Vaginal Delivery Ayan Calculation Initial Ayan Date Initial Exam Date Initial Exam Provider Initial Ultrasound Date Last Menstrual Period Date Ultra Sound Weeks Gestation 0 Eighteen To Twenty Week Ayan Update Ultra Sound Date Fundal Height At Umbil Quickening Date Ultra Sound Latest Weeks Gestation Final Ayan Confirmed By Final Ayan Confirmed Date Final Ayan Date Ultra Sound Latest Days Gestation 0 0 Menstrual History Last Menstrual Date Menses Monthly On Bcp Conception Prior Menses Frequency Hcg Plus Date Menarche Onset Age Delivery Information Delivery Date Delivery Type Labor Anesthesia Weeks Gestation Incision Type Labor Labor Length Hrs Delivered By Post Complications Tubal Sterilization Discharge Date Comments 6 42 Discharge Information Feeding Method Contraceptive Method Maternal HG B and HCT Levels Ob Episode Information Episode Created Date Number of Fetuses Patient Bloodtype Patient rh Status Prepregnancy Weight lbs Domestic Partner Domestic Partner Phone Father Name Technical Research Scientist Status 07/13/19 24 1 A Positive 207.6 CLOSED Fetus Data First Name Last Name Admitted to NICU Weight (g) Sex Living Outcome Pediatric Complications Fetus ID Race Codes Race Delivery Type [id number] F true Full Term [id number] Vaginal Delivery Problems Problem Notes [place] Problem Name Start Date End Date Resolution Snomed Code Not e Low lying placenta 08/07/2023 [id number] RESOLVED Anxiety in [id number] sertraline 50mg Marginal insertion of umbilical cord [id number] serial growth Ayan Calculation Initial Ayan Date Initial Exam Date Initial Exam Provider Initial Ultrasound Date Last Menstrual Period Date Ultra Sound Weeks Gestation 01/22/2024 07/13/2023 06/12/2023 04/09/2023 8 Eighteen To Twenty Week Ayan Update Ultra Sound Date Fundal Height At Umbil Quickening Date Ultra Sound Latest Weeks Gestation Final Ayan Confirmed By Final Ayan Confirmed Date Final Ayan Date Ultra Sound Latest Days Gestation 0 [email or web address] 07/13/2023 01/22/20 24 0 Pre-chino Flowsheet Flowsheet Date 07/13/2023 Urban Score Blood Edema Fundus Height Fundus Units Glucose Ketones Leukocytes Nitrite Labor Signs Protein Cervic Dilation Cervic Effacement Cervic Station Type Weight in lbs Pre/Post Dialysis Refused BP Diastolic BP Location Tested BP Systolic BP Type Fetus Heart Rate Present Fetus Movement Comments Flowsheet Date 07/13/2023 Urban Score Blood Edema Fundus Height Fundus Units Glucose Ketones Leukocytes Nitrite Labor Signs Protein Cervic Dilation Cervic Effacement Cervic Station 12 Type Weight in lbs Pre/Post Dialysis Refused Weight 208.087156128019 BP Diastolic BP Location Tested BP Systolic BP Type 83 126 Fetus Heart Rate Present Fetus Movement Comments Presents to establish prenat al care. Nausea improved. having increased irritability and anxiety, was previously on sertraline prior to . DIscussed that these could be symptoms of worsening depression in . Recommend restarting sertraline, at 25mg if patient desires. Patient to consider. No SI/HI. NT/NB wnl today. LR female NIPT. otherwise uncomplicated. Rtc 4 weeks. Flowsheet Date 08/07/2023 Urban Score Blood Edema Fundus Height Fundus Units Glucose Ketones Leukocytes Nitrite Labor Signs Protein Cervic Dilation Cervic Effacement Cervic Station Type Weight in lbs Pre/Post Dialysis Refused BP Diastolic BP Location Tested BP Systolic BP Type Fetus Heart Rate Present Fetus Movement Comments Flowsheet Date 08/14/2023 Urban Score Blood Edema Fundus Height Fundus Units Glucose Ketones Leukocytes Nitrite Labor Signs Protein Cervic Dilation Cervic Effacement Cervic Station 17 Type Weight in lbs Pre/Post Dialysis Refused Weight 204.802603912080 BP Diastolic BP Location Tested BP Systolic BP Type 71 105 Fetus Heart Rate Present A 150 Fetus Movement A Yes Comments Reports lightheadedness epis odes, getting worse. No clear triggers, staying well hydrated. Eating normally. Had labs 1 week ago with normal Hgb 12.6. WIll recheck labs today. Could check holter monitor if symptoms worsen and normal labs. Good movement. Some spotting with activity, compliant with pelvic rest. US last week demonstrated LLP 1.5cm from os, no retroplacental bleeding. Bleeding likely 2/2 cervical irritation. Patient to call if bleeding or lightheadedness worsening. Restarted zoloft for anxiety, feeling well. RTC 3 weeks for anatomy US. Flowsheet Date 09/04/2023 Urban Score Blood Edema Fundus Height Fundus Units Glucose Ketones Leukocytes Nitrite Labor Signs Protein Cervic Dilation Cervic Effacement Cervic Station Type Weight in lbs Pre/Post Dialysis Refused BP Diastolic BP Location Tested BP Systolic BP Type Fetus Heart Rate Present Fetus Movement Comments Flowsheet Date 09/04/2023 Urban Score Blood Edema Fundus Height Fundus Units Glucose Ketones Leukocytes Nitrite Labor Signs Protein Cervic Dilation Cervic Effacement Cervic Station Type Weight in lbs Pre/Post Dialysis Refused Weight 208.291312629530 BP Diastolic BP Location Tested BP Systolic BP Type 76 118 Fetus Heart Rate Present Fetus Movement Comments Flowsheet Date 09/10/2023 Urban Score Blood Edema Fundus Height Fundus Units Glucose Ketones Leukocytes Nitrite Labor Signs Protein Cervic Dilation Cervic Effacement Cervic Station Type Weight in lbs Pre/Post Dialysis Refused Weight 208.770554311251 BP Diastolic BP Location Tested BP Systolic BP Type 71 L arm 112 sitting Fetus Heart Rate Present A 150 Fetus Movement A Yes Comments Doing well, dizziness improv ed. No further spotting. Anatomy US last week, complete and normal aside from marginal cord insertion. EFW 61%, LLP resolved. Ok to stop pelvic rest. Discussed serial growth US for MCI. Patient is considering tubal ligation after , r/b discussed. RTC 4 weeks. Flowsheet Date 10/05/2023 Urban Score Blood Edema Fundus Height Fundus Units Glucose Ketones Leukocytes Nitrite Labor Signs Protein Cervic Dilation Cervic Effacement Cervic Station Type Weight in lbs Pre/Post Dialysis Refused BP Diastolic BP Location Tested BP Systolic BP Type Fetus Heart Rate Present Fetus Movement Comments Flowsheet Date 10/05/2023 Urban Score Blood Edema Fundus Height Fundus Units Glucose Ketones Leukocytes Nitrite Labor Signs Protein Cervic Dilation Cervic Effacement Cervic Station Type Weight in lbs Pre/Post Dialysis Refused Weight 213.899213881932 BP Diastolic BP Location Tested BP Systolic BP Type 77 119 Fetus Heart Rate Present A 151 Fetus Movement A Yes Comments Good movement. No cram ping or bleeding. EFW 41%, normal YOSELIN. Continue serial growth US for MCI. Discussed breast pump resources. Discussed GCT and labs for next visit. RTC 4 weeks. Flowsheet Date 10/29/2023 Urban Score Blood Edema Fundus Height Fundus Units Glucose Ketones Leukocytes Nitrite Labor Signs Protein Cervic Dilation Cervic Effacement Cervic Station Type Weight in lbs Pre/Post Dialysis Refused BP Diastolic BP Location Tested BP Systolic BP Type Fetus Heart Rate Present Fetus Movement Comments Flowsheet Date 10/29/2023 Urban Score Blood Edema Fundus Height Fundus Units Glucose Ketones Leukocytes Nitrite Labor Signs Protein Cervic Dilation Cervic Effacement Cervic Station 28 cm Type Weight in lbs Pre/Post Dialysis Refused 218.569566148142 BP Diastolic BP Location Tested BP Systolic BP Type 79 L arm 118 sitting Fetus Heart Rate Present A 145 Fetus Movement A Yes Comments Patient reports dizziness. S he also indicates that there is some tremor, diaphoresis, anxiety Associated with the dizziness. It is unclear if it is hypotension versus hypoglycemia. She was given precautions and instructions on both. Flowsheet Date 11/13/2023 Urban Score Blood Edema Fundus Height Fundus Units Glucose Ketones Leukocytes Nitrite Labor Signs Protein Cervic Dilation Cervic Effacement Cervic Station 30 cm Type Weight in lbs Pre/Post Dialysis Refused Weight 222.8454023816 BP Diastolic BP Location Tested BP Systolic BP Type 86 L arm 127 sitting Fetus Heart Rate Present A 145 Fetus Movement A Yes Comments no complaints, no problems, routine care, no contractions, no vaginal bleeding, no loss of fluid, no cramping Flowsheet Date 11/30/2023 Urban Score Blood Edema Fundus Height Fundus Units Glucose Ketones Leukocytes Nitrite Labor Signs Protein Cervic Dilation Cervic Effacement Cervic Station Type Weight in lbs Pre/Post Dialysis Refused BP Diastolic BP Location Tested BP Systolic BP Type Fetus Heart Rate Present Fetus Movement Comments Flowsheet Date 11/30/2023 Urban Score Blood Edema Fundus Height Fundus Units Glucose Ketones Leukocytes Nitrite Labor Signs Protein Cervic Dilation Cervic Effacement Cervic Station none Type Weight in lbs Pre/Post Dialysis Refused 225.006835962713 BP Diastolic BP Location Tested BP Systolic BP Type 80 114 Fetus Heart Rate Present Fetus Movement A Yes Comments Patient states that is havin g some pain, cramping, pressure, discaharge and nausea. US reviewed vtx, efw 43%, doing well +FM, not sleeping well, encouraged naps, discussed RSV vaccine, preadmission scheduled. precautions and education f/u 2 weeks Flowsheet Date 12/14/2023 Urban Score Blood Edema Fundus Height Fundus Units Glucose Ketones Leukocytes Nitrite Labor Signs Protein Cervic Dilation Cervic Effacement Cervic Station neg none none trace 1cm 50% -2 Type Weight in lbs Pre/Post Dialysis Refused Weight 227.1554436729 BP Diastolic BP Location Tested BP Systolic BP Type 80 L arm 127 sitting Fetus Heart Rate Present A 135 Fetus Movement A Yes Comments Patient c/o of nausea. Good movement. No LOF or vaginal bleeding. Intermittent contractions. Would like EIL on 01/14. Discussed RSV and Tdap vaccines. RTC 2 weeks for GBS, growth US and visit. Flowsheet Date 12/28/2023 Urban Score Blood Edema Fundus Height Fundus Units Glucose Ketones Leukocytes Nitrite Labor Signs Protein Cervic Dilation Cervic Effacement Cervic Station Type Weight in lbs Pre/Post Dialysis Refused BP Diastolic BP Location Tested BP Systolic BP Type Fetus Heart Rate Present Fetus Movement Comments Flowsheet Date 12/28/2023 Urban Score Blood Edema Fundus Height Fundus Units Glucose Ketones Leukocytes Nitrite Labor Signs Protein Cervic Dilation Cervic Effacement Cervic Station Type Weight in lbs Pre/Post Dialysis Refused 231.201589631987 BP Diastolic BP Location Tested BP Systolic BP Type 76 121 Fetus Heart Rate Present Fetus Movement A Yes Comments EFW 22%, +FM doing well, had preadmit, precautions and education f/u one week Flowsheet Date 01/04/2024 Urban Score Blood Edema Fundus Height Fundus Units Glucose Ketones Leukocytes Nitrite Labor Signs Protein Cervic Dilation Cervic Effacement Cervic Station none 35 cm Type Weight in lbs Pre/Post Dialysis Refused Weight 234.293606268642 BP Diastolic BP Location Tested BP Systolic BP Type 81 118 Fetus Heart Rate Present A 145 Fetus Movement A Yes Comments Patient states that is havin g discharge, nausea and lightheaded. reviewed education and precautions +FM. Flowsheet Date 01/11/2024 Urban Score Blood Edema Fundus Height Fundus Units Glucose Ketones Leukocytes Nitrite Labor Signs Protein Cervic Dilation Cervic Effacement Cervic Station Type Weight in lbs Pre/Post Dialysis Refused BP Diastolic BP Location Tested BP Systolic BP Type Fetus Heart Rate Present Fetus Movement Comments Flowsheet Date 01/11/2024 Urban Score Blood Edema Fundus Height Fundus Units Glucose Ketones Leukocytes Nitrite Labor Signs Protein Cervic Dilation Cervic Effacement Cervic Station neg none none trace 1cm 60% -2 Type Weight in lbs Pre/Post Dialysis Refused Weight 237.9423915175 BP Diastolic BP Location Tested BP Systolic BP Type 82 L arm 122 sitting Fetus Heart Rate Present A 137 Fetus Movement A Yes Comments Patient c/o of nausea. Good movement. No strong ctx, LOF, VB. YOSELIN wnl today. EIL scheduled for Sunday. Labor precautions reviewed. Menstrual History Last Menstrual Date Menses Monthly On Bcp Conception Prior Menses Frequency Hcg Plus Date Menarche Onset Age 0104/09/2023 Genetic Screening And Infection History Question Response Note Mental Retardation/Autism false Patient's Age Will Be 35 Years Or Older At Estim ated Date of Delivery false Thalassemia (German, Maori, Mediterranean, Or Background): MCV < 80 false Neural Tube Defect (Meningomyelocele, Spina Bifi da, Or Anencephaly) false Congenital Heart Defect false Down Syndrome false Jaquan-Sachs (eg, Sabianism, Cajun, Kyrgyz-Pitcher) f alse Leodan Disease false Sickle Cell Disease Or Trait () false Hemophilia Or Other Blood Disorders false Muscular Dystrophy false Cystic Fibrosis false Maria G's Chorea false Intellectual Disability/Autism false If Yes, Was Person Tested For Fragile X? false Other Inherited Genetic Or Chromosomal Disorder false Maternal Metabolic Disorder (eg, Type 1 Diabetes , PKU) false Patient Or Baby's Father Had A Child With Defects Not Listed Above false Recurrent Loss, Or A Stillbirth false Medications (including Suppl ements, Vitamins, Herbs, OTC Drugs), Illicit/Recreational Drugs, Alcohol false If Yes, Agent(s) And Strength/Dosage false Any Other Genetic History false Live With Someone With TB Or Exposed To TB false Patient Or Partner Has History Of Genital Herpes false Rash Or Viral Illness Since Last Menstrual Perio d false History Of STD, Gonorrhea, Chlamydia, HPV, Syphi lis false Other Infection History false History of HIV false History of Hepatitis false Prior GBS-infected child false Hemoglobinopathy Or Carrier false Other Structural Defect false Recent Travel History Outside of Country false Delivery Information Delivery Date Delivery Type Labor Anesthesia Weeks Gestation Incision Type Labor Labor Length Hrs Delivered By Post Complications Tubal Sterilization Discharge Date Comments 4 Sponta neous Regional-Ep idural 39 false Galvan Anxiety in ,Low lying placenta, Marginal insertion of umbilical cord Discharge Information Feeding Method Contraceptive Method Maternal HG B and HCT Levels
--- OUTSIDE RECORDS SUMMARY | 2024-04-10 11:14 | XMS_ITS | Encounter Summary ---
Author Organization [facility] Address [address] [place] [address]. [place] [address] [place] [address] Care Team Providers Care Wellness Coach Name Role Phone Eladio Garcia MD Primary Care Provider + Encounter Details Date Type Department Care Team (Late st Contact Info) Description 04/14/2016 Abstract [facility] CONVERSION [address] [place] [address] , Generic MD Yuriy Social History Tobacco Use Types Packs/Day Years Used Date Smoking Tobacco: Never Assessed Comments Unknown Sex and Gender Information Value Date Recorded Sex Assigned at Not on file Legal Sex Female 7:31 PM CDT Gender Identity Not on file Sexual Orientation Not on file documented as of this encounter Plan of Treatment Not on file documented as of this encounter Visit Diagnoses Not on filedocumented in this encounter Additional Health Concerns Infection Onset Date Last Indicated Resolved Time COVID-19 Rule Out 08/23/2020 08/23/2020 08/23/2020 12:55 PM CDT COVID-19 Rule Out 08/23/2020 08/24/2020 08/24/2020 11:04 AM CDT documented as of this encounter Care Teams Wellness Coach Relationship Specialty Start Date End Date Eladio Garcia MD [address] [place] [address] PCP - General FAMILY PRACTICE 02/08/18 documented as of this encounter
--- OUTSIDE RECORDS SUMMARY | 2024-04-10 11:14 | XMS_ITS | Encounter Summary ---
Author Organization [facility] Address [address] [place] [address]. [place] [address] [place] [address] Care Team Providers Care Mechanical Commissioning Engineer Name Role Phone Eladio Garcia MD Primary Care Provider + Encounter Details Date Type Department Care Team (Late st Contact Info) Description 08/23/2020 Prep for Procedure [facility] [address] [place] [address] Mingo Solano MD [address] [place] [address] Social History Tobacco Use Types Packs/Day Years [...] Exposure Response Date Recorded In the last month, have you been in contact with someone who was confirmed or suspected to have Coronavirus / COVID-19? No / Unsure 08/23/2020 11:55 AM CDT documented as of this encounter Plan of Treatment Not on file documented as of this encounter Visit Diagnoses Diagnosis Pre-op testing- Primary Preoperative examination, unspecified documented in this encounter Additional Health Concerns Infection Onset Date Last Indicated Resolved Time COVID-19 Rule Out 08/23/2020 08/23/2020 08/23/2020 12:55 PM CDT COVID-19 Rule Out 08/23/2020 08/24/2020 08/24/2020 11:04 AM CDT Assessment Noted Time PHQ-9 Depression Total Score: 20 021 4:14 PM CDT documented as of this encounter Care Teams Mechanical Commissioning Engineer Relationship Specialty Start Date End Date Eladio Garcia MD [address] [facility] [address] [place] [address] PCP - General FAMILY PRACTICE 02/08/18 documented as of this encounter
== END 2024-04-07 13:22 | disposition home or self-care (01) ==
PROVIDERS: PCP Family Medicine; Visit Provider Obstetrics & Gynecology
PROC: (CPT 49320; principal; 2024-04-07 10:00)
DX: Z30.2 Encounter for sterilization (principal); N83.8 Other noninflammatory disorders of ovary, fallopian tube and broad ligament; E66.9 Obesity, unspecified; Z68.35 Body mass index [BMI] 35.0-35.9, adult
CPT/HCPCS: 58661; 88302; A9270; J1100; J1171; J1885; J2003; J2250; J2405; J2704; J3010; J7120

== ENCOUNTER 2024-08-04 17:26 | Emergency (ER) | payer OTHER, SELFPAY ==
--- NOTE | ~2024-08-04 | XR_ITS ---
EXAM: XR lumbar spine 2-3V DATE: 08/04/2024 18:11 HISTORY: fall . COMPARISON: None available. FINDINGS: 5 nonrib-bearing lumbar-type vertebral bodies. Pedicles intact. Normal vertebral body alig nment. Vertebral body heights preserved. Disc spaces maintained. Normal facets and posterior elements . No fracture or dislocation. IMPRESSION: No acute fracture or traumatic malalignment detected in the lumbar spine. If pain persist s, or clinical suspicion of injury is high, recommend CT and/or MRI of the lumbar spine for further e valuation. Reviewed, dictated and finalized at location K. IMPRESSION: No acute fracture or traumatic malalignment detected in the lumbar spine. If pain persists, or clinical suspicion of injury is high, recommend CT and/or MRI of the lumbar spine for further evaluation.
--- OUTSIDE RECORDS SUMMARY | 2024-08-04 17:28 | XMS_ITS | Encounter Summary ---
Author Organization [facility] Address [facility] [place] [address] Care Team Providers Care Pickle Water Pump Operator Name Role Phone Eladio Garcia MD Primary Care Provider + Encounter Details Date Type Department Care Team (Late st Contact Info) Description 04/29/2024 [employer] Message [address] [phone] [place], [facility] Provider results Social History Tobacco Use Types Packs/Day Years Used Date Smoking Tobacco: Never Smokeless Tobacco: Never Alcohol Use Standard Drinks/Week Comments Yes 0 (1 standard drink = 0.6 oz pur e alcohol) occasionally PHQ-2 Answer Date Recorded Patient Health Questionnaire-2 Score 0 04/29/2024 Comments No Sex and Gender Information Value Date Recorded Sex Assigned at Female 04/29/2024 11:00 AM FILM COMPOSER Legal Sex Female 7:31 PM CDT Gender Identity Not on file Sexual Orientation Not on file documented as of this encounter Functional Status * Over the past 2 weeks, how often have you been bothered by any of the following problems? Question Answer Date of Assessment Author Status Little interest or pleasure in doing things Not at all 04/29/2024 11:02 AM Grecia Guzmán MA Active Feeling down, depressed, or hopeless Not at all 04/29/2024 11:02 AM Grecia Guzmán MA Active Patient Health Questionnaire-2 Score 0 04/29/2024 11:02 AM Grecia Guzmán MA Active documented as of this encounter Plan of Treatment Not on file documented as of this encounter Visit Diagnoses Not on filedocumented in this encounter Additional Health Concerns Assessment Noted Time PHQ-9 Depression Total Score: 0 02/29/20 21 10:07 AM FILM COMPOSER documented as of this encounter Care Teams Pickle Water Pump Operator Relationship Specialty Start Date End Date Eladio Garcia MD [address] [place] [id number] PCP - General FAMILY PRACTICE 02/08/18 documented as of this encounter
--- OUTSIDE RECORDS SUMMARY | 2024-08-04 17:28 | XMS_ITS | Clinical Summary ---
Author Organization [facility] Address [address] [place] [address] Care Team Providers Care Wet Cleaner Machine Name Role Phone Eladio Garcia MD Primary Care Provider + Allergies Active Allergy Reactions Criticality Noted Date Comments Buspirone Rash Low 10/19/2014 Medications ondansetron (ZOFRAN) 4 MG tablet take 1 tablet by mouth every 4 to 6 hours 4 Active sertraline (ZOLOFT) 50 MG tabletIndicatio ns:Mood disorder Take 1 tablet (50 mg total) by mouth daily. 90 tablet 1 4 Active Additional Information Patient not taking.Reported on 07/03/2024 clonazePAM (KLONOPIN) 1 MG tabletIndicatio ns:Primary insomnia TAKE 1 TABLET BY MOUTH NIGHTLY NEEDED FOR ANXIETY 30 tablet 5 Active sertraline (ZOLOFT) 100 MG tablet Take 1 tablet (100 mg total) by mouth daily. 5 Active clonazePAM (KLONOPIN) 2 MG tabletIndicatio ns:Anxiety disorder, unspecified type TAKE 1 TABLET BY MOUTH NIGHTLY NEEDED 28 tablet 5 Active semaglutide-herber ght management (WEGOVY) 1.7 mg/dose injection (PEN)Indication s:Weight Loss Inject 1.7 mg into the skin once a week. Indications: Weight Loss 3 mL 5 Active semaglutide-herber ght management (WEGOVY) 1 mg/dose injection (PEN)Indication s:Weight Loss Inject 1 mg into the skin once a week. Indications: Weight Loss 2 mL 5 025 Discontin ued(Formu shay change) semaglutide-herber ght management (WEGOVY) 1.7 mg/dose injection (PEN)Indication s:Weight Loss Inject 1.7 mg into the skin once a week. 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/15/2022 Mood disorder 10/26/2021 Anxiety disorder, unspecified 07/17/2016 Resolved Problems Problem Noted Date Diagnosed Date Resolved Date Perianal mass 08/20/2020 08/31/2020 Encounters Date Type Department Care Team Description 07/03/2024 10:20 AM CDT Office Visit [address] [address] Eladio Garcia MD Follow Up (medication) 07/03/2024 Travel from Last 3 Months Immunizations Immunization Administration Dates Next Due HPV 05/18/2008,01/27/2008,11/21/2007 MMR [...] Sex Assigned at Female 04/29/2024 11:00 AM ENTRY LEVEL MARKETING REPRESENTATIVE Legal Sex Female 7:31 PM CDT Gender Identity Not on file Sexual Orientation Not on file Last Filed Vital Signs Vital Sign Reading Time Taken Comments Blood Pressure 123/74 07/03/2024 10:24 AM CDT Pulse 88 07/03/2024 10:24 AM CDT Temperature 36.8 C (98.2 F) 07/03/2024 10:24 AM CDT Respiratory Rate 18 07/03/2024 10:24 AM CDT Oxygen Saturation 100% 07/03/2024 10:24 AM CDT Inhaled Oxygen Concentration - - Weight 104.1 kg (229 lb 8 oz) 07/03/2024 10:24 A M CDT Height 172.7 cm (5' 8 ) 07/03/2024 10:24 AM CDT Body Mass Index 34.9 07/03/2024 10:24 AM CDT Plan of Treatment Health Maintenance Due Date Last Done Comments Annual Physical 1993 Hepatitis B Vaccines (1 of 3 - 19+ 3-dose series) 2009 COVID-19 Vaccine (2023-2 5 season) 2023 DTaP, Tdap and Td Vaccines ( 3 - Td or Tdap) 07/11/2025 07/12/2015, 03/17/2013 Cervical Cancer Screening Pa p Smear (Age 30 to 64) Every 3 Years 12/27/2026 12/28/2023 Cervical Cancer Screening Pa p with HPV Testing (Age 30 to 64) Every 5 Years 12/27/2028 12/28/2023 Cervical Cancer Screening wi th HPV 12/27/2028 HPV Vaccines Completed 05/18/2008, 01/27/2008, 11/21/2007 Hepatitis C Completed 08/07/2023 PHQ-2 (Physician [place]) Completed 04/29/2024 Meningococcal B Vaccine Aged Out No l onger eligible based on patient's age to complete this topic Meningococcal Vaccine Aged Out No amrit eneida eligible based on patient's age to complete this topic Pneumococcal Vaccine: Pediatrics (0 to 5 Years) and At-Risk Patients (6 to 49 Years) Aged Out No longer eligible b [...] Most Recently Relevant to Health Maintenance Insurance [facility] Member Subscriber Plan / Payer (Ef fective 2019-Present) Name:Shabbir James Relation to Subscriber:Self Name:Shabbir James Payer ID:Not on file Type:Not on file Address: [id number] Care Teams Wet Cleaner Machine Relationship Specialty Start Date End Date Eladio Garcia MD [address] [facility] [address] [place] [address] PCP - General FAMILY PRACTICE 02/08/18
--- OUTSIDE RECORDS SUMMARY | 2024-08-04 17:29 | XMS_ITS | Encounter Summary ---
Author Organization [facility] Address [facility] [place] [address] Care Team Providers Care Sandblast Or Shotblast Equipment Tender Name Role Phone Eladio Garcia MD Primary Care Provider + Encounter Details Date Type Department Care Team (Late st Contact Info) Description 11/30/2020 [employer] Message [facility] [address] [place] [address] [place], [facility] Provider referral Social History Tobacco Use Types [...] Sex Assigned at Female 04/29/2024 11:00 AM PUBLIC HEALTH PROFESSOR Legal Sex Female 7:31 PM CDT Gender Identity Not on file Sexual Orientation Not on file documented as of this encounter Plan of Treatment Not on file documented as of this encounter Visit Diagnoses Not on filedocumented in this encounter Additional Health Concerns Assessment Noted Time PHQ-9 Depression Total Score: 20 021 4:14 PM CDT documented as of this encounter Care Teams Sandblast Or Shotblast Equipment Tender Relationship Specialty Start Date End Date Eladio Garcia MD [address] [place] [address] PCP - General FAMILY PRACTICE 02/08/18 documented as of this encounter
--- OUTSIDE RECORDS SUMMARY | 2024-08-04 17:29 | XMS_ITS | Data Portability ---
Author Organization [facility] Address [address] [place] [address] Care Team Providers Care Certified Nurse Midwife Name Role Phone ELADIO BHAT Primary Care Provider [phone] Assessment No assessment recorded. Plan of Treatment Reminders Order Date Submit Date Provider Last Modified By Organization Details Last Modified Time Details Appointments None recorded. Lab None recorded. Referral None recorded. Procedures None recorded. Surgeries salpingecto my, laparoscopi c (SURG) 2023 024 [facility] [place] [facility], [address] [address], [place], [address], 4 15:14:07 Imaging None recorded. Medication Orders Lysteda 650 mg tablet 2024 025 [facility], [address] [place], [address], 5 15:39:52 sertraline 100 mg tablet 2024 025 [facility], [address] [place], [address], 5 17:10:24 Zurzuvae 25 mg capsule 2024 025 Not available 15:25:13 Patient TargetsNo targets recorded. Patient InstructionsNo instructions [...] t Abnor mal: No Resul ting Lab: [facility] [address] [facility] [address] Tel: CULTU RE ----- ----- ----- --- No growt h in 1 day (dete ction level of 10,00 0 colon ies / ml.) Not Available [facility] (Lab) [address] [facility], [place], [address], 12/31/2023 12:38:24 12/28/19 24 12/28/2023 CT/GC AND TRICH OMONA S VAGIN AYESHA (RRNA ), URINE chlamydia trachomatis, PCR Negati ve negati ve Not Available [facility] (Lab) [address] [facility], [place], [address], 12/31/2023 12:38:24 12/28/19 24 12/28/2023 CT/GC AND TRICH OMONA S VAGIN AYESHA (RRNA ), URINE neisseria gonorrhoeae, PCR Negati ve negati ve Not Available [facility] (Lab) [address] [place], [address], 12/31/2023 12:38:24 12/28/19 24 12/28/2023 CT/GC AND TRICH OMONA S VAGIN AYESHA (RRNA ), URINE trichomonas vaginalis ribosomal RNA (rrna) Negati ve negati ve Not Available [facility] (Lab) [address] [place], [address], 12/31/2023 12:38:24 12/28/19 24 12/28/2023 CULTU RE: GROUP B STREP SCREE N, REFLE X SUSCE PTIBI LITY result report SEE RESULT S BELOW abnormal Test: Cultu re: Group B Strep , Refle x Susce ptibi lity ([facility] ) Speci men Sourc e: Vagin a/Rec randall Speci men Type: Vagin al/Re ctal Speci men Date: 12/27 1334 Resul t Date: 01/01 1544 Resul t Statu s: Final resul t Abnor mal: Yes Resul ting Lab: [facility] [address] [facility] [address] [facility] [address] Tel: CULTU RE ----- ----- ----- --- [...] at high risk for anaph ylaxi s. Susce ptibi lity testi ng is not neces norris for these drugs . Not Available [facility] (Lab) [address], [place], [address], 01/02/2024 16:47:26 12/28/19 24 12/28/2023 drug scree n, urine Amphetamines : negati ve Not Available [facility] [address], [place], [address], 12/28/2023 12:23:51 12/28/19 24 12/28/2023 drug scree n, urine Cannabinoids : negati ve Not Available [facility] [address], [place], [address], 12/28/2023 12:23:51 12/28/19 24 12/28/2023 drug scree n, urine Cocaine: negati ve Not Available [facility] [address], [place], [address], 12/28/2023 12:23:51 12/28/19 24 12/28/2023 drug scree n, urine Opiates: negati ve Not Available [facility] [address], [place], [address], 12/28/2023 12:23:51 12/28/19 24 12/28/2023 drug scree n, urine Phenocyclidi ne: negati ve Not Available [facility] [address], [place], [address], 12/28/2023 12:23:51 12/28/1912/28/2023 drug scree n, urine Barbiturates : negati ve Not Available [facility] [address], [place], [address], 12/28/2023 12:23:51 12/28/1912/28/2023 drug scree n, urine Benzodiazepi elmer: negati ve Not Available [facility] [address], [place], [address], 12/28/2023 12:23:51 12/28/1912/28/2023 drug scree n, urine Ethanol: negati ve Not Available [facility] [address], [place], [address], 12/28/2023 12:23:51 12/28/1912/28/2023 drug scree n, urine Hallucinogen s: negati ve Not Available [facility] [address], [place], [address], 12/28/2023 12:23:51 12/28/1912/28/2023 drug scree n, urine Inhalants: negati ve Not Available [facility] [address], [place], [address], 12/28/2023 12:23:51 12/28/1912/28/2023 drug scree n, urine Anabolic Steroids: negati ve Not Available [facility] [address], [place], [address], 12/28/2023 12:23:51 12/28/19 24 12/28/2023 drug scree n, urine Other: negati ve Not Available [facility] [address], [place], [address], 12/28/2023 12:23:51 12/28/1912/28/2023 US, obste tric, follo w-up No observ ation record ed. darrell [facility] [address], [place], [address], 12/28/2023 17:17:53 12/28/1912/28/2023 US, obste tric, follo w-up No observ ation record ed. [email or web address] [address], [place], [address], 12/31/2023 10:37:45 01/11/2001/11/2024 US, obste tric, limit ed No observ ation record ed. [email or web address] [address], [place], [address], 01/12/2024 18:01:24 Result Notes None recorded. Problems Name Problem SNOMED Code Status Onset Date Resolution Date Notes Provider Name and Address Organization Details Recorded Time Pregnanc y 72989585 Completed 202301/21/2024 Gonsalo coates [facility] 14:34:27 Low lying placenta 177903269 Completed 2023 RESOLVED Belia coates [facility] 11:10:06 Anxiety in pregnanc y 5746593428 9109 Completed sertrali ne 50mg Belia coates [facility] 4 11:10:06 Marginal insertio n of umbilica l cord 83663263 Completed serial growth Belia Wilson coates, [facility] 4 11:10:06 Marginal insertio n of umbilica l cord 17476943 Completed 04/17/2024 serial growth ELOISE GALVAN MD [address], [place], [address], [facility] 5 17:06:10 Anxiety in pregnanc y 6209903361 9109 Active sertrali ne 50mg Belia Wilson [facility], [facility] 4 11:10:06 Problem Notes None recorded. Procedures Surgical History Date Name Laterality Status Provider Name and Address Organization Details Recorded Time 2024 resection of bilateral fallopian tubes completed ELOISE GALVAN MD [address], [place], [address], [facility] 5 17:02:00 2022 Date of Last Pap Smear completed Elina Lanza [facility] 4 12:57:56 2021 biopsy of rectum completed Mariann Conte [facility] 4 12:22:08 2015 Tonsillectomy completed Mariann Conte [facility] 4 12:21:13 2014 hysterosalpingography completed Mariannviviane Conte [facility] 4 12:21:02 2014 extraction of wisdom tooth completed Mariann Conte [facility] 4 12:21:22 Imaging Results Imaging Date Name Status LastModified by Organiz ation Details LastModified Time 12/28/2023 US, obstetric, follow-up completed darrell Charles [address], [place], [address], 12/28/2023 17:17:53 12/28/2023 US, obstetric, follow-up completed [email or web address] [address], [place], [address], 12/31/2023 10:37:45 01/11/2024 US, obstetric, limited completed [email or web address] [address], [place], [address], 01/12/2024 18:01:24 Procedure Notes None recorded. Medical Equipment None Reported. Allergies No known drug allergies Medications Name Sig Start Date Stop Date Status Note LastModified by Organization Details LastModified Time ibuprofen 800 mg tablet TAKE 1 TABLET BY MOUTH EVERY 8 HOURS NEEDED . APPOINTME NT REQUIRED FOR FUTURE REFILLS 06/11 completed Not Available Not Available Not Available ondansetron HCl 4 mg tablet TAKE 1 TABLET BY MOUTH EVERY 4 TO 6 HOURS 06/18 completed Not Available Not Available Not Available sertraline 100 mg tablet TAKE 1 TABLET BY MOUTH ONCE DAILY active Not Available Not Available No t Available clonazepam 1 mg tablet TAKE 1 TABLET [...] MOUTH TWICE DAILY NEEDED FOR CONSTIPAT ION 06/18 completed Not Available Not Available Not Available ibuprofen 600 mg tablet TAKE 1 TABLET BY MOUTH EVERY 6 HOURS NEEDED FOR CRAMPS 06/18 completed Not Available Not Available Not Available sertraline 50 mg tablet TAKE 1 TABLET BY MOUTH ONCE DAILY 04/17 completed Not Available Not Available Not Available oxycodone 5 mg tablet TAKE 1 TABLET BY MOUTH EVERY 4 HOURS NEEDED FOR PAIN 04/17 completed Not Available Not Available Not Available Sprintec (28) 0.25 mg-0.035 mg tablet TAKE 1 TABLET BY MOUTH ONCE DAILY 06/11 completed Not Available Not Available Not Available active Not Available Not Avai lable Not Available tranexamic acid 650 mg tablet TAKE 2 TABLETS BY MOUTH THREE TIMES DAILY FOR 5 DAYS 2024 active Not Available Not Available Not Avai lable Wegovy 1.7 mg/0.75 mL subcutaneou s pen injector INJECT 1.7 MG INTO THE SKIN ONCE A WEEK. INDICATIO NS: WEIGHT LOSS. active Not Available Not Available No t Available Wegovy 1 mg/0.5 mL subcutaneou s pen injector INJECT 1 MG (0.5 ML) SUBCUTANE OUSLY ONCE A WEEK active Not Available Not Available No t Available Wegovy 0.25 mg/0.5 mL subcutaneou s pen injector INJECT 0.25 MG INTO THE SKIN ONCE A WEEK. 06/18 completed Not Available Not Available Not Available Wegovy 0.5 mg/0.5 mL subcutaneou s pen injector INJECT 0.5 MG SUBCUTANE OUSLY ONCE A WEEK 06/18 completed Not Available Not Available Not Available [...] completed Not Available Not Available Not Available Zurzuvae 25 mg capsule take 2 capsule daily for 14 days 06/18 completed Not Available Not Available Not Available Vitals Date Recorded Body height Body mass index (BMI) Body weight Systolic blood pressure Diastolic blood pressure Provider Name and Address Organization Details Last Updated DateTime 01/11/2024 173.99 cm 35.5 kg/m2 379137.3 9 g 122 mm[Hg] 82 mm[Hg] Ching Lin [facility] 11:11:09 Date Recorded Body height Body mass index (BMI) Body weight Systolic blood pressure Diastolic blood pressure Provider Name and Address Organization Details Last Updated DateTime 02/11/2024 173.99 cm 34.5 kg/m2 707165.2 5 g 135 mm[Hg] 83 mm[Hg] [facility] 4 14:30:13 Date Recorded Body height Body mass index (BMI) Body weight Systolic blood pressure Diastolic blood pressure Provider Name and Address Organization Details Last Updated DateTime 04/17/2024 173.99 cm 35.4 kg/m2 697019.8 g 122 mm[Hg] 86 mm[Hg] Ching Rliey [facility] 5 11:14:00 Date Recorded Body height Body mass index (BMI) Body weight Systolic blood pressure Diastolic blood pressure Provider Name and Address Organization Details Last Updated DateTime 06/18/2024 173.99 cm 33.9 kg/m2 732216.8 8 g 126 mm[Hg] 83 mm[Hg] YVROSE Theodore [facility] 15:24:36 Social History Question Answer Notes LastModified by Organizat ion Details LastModified Time Tobacco Smoking Status Never Smoker Mariann coates [facility] 12/28/2023 12:20:45 If You Are , What Was Your Level Of Alcohol Consumption Prior To ? Occasional [email or web address] Information not available 11/30/2023 Are You Blind Or Do You Have Difficulty Seeing? No Information n ot available 07/13/2023 What Is Your Level Of Caffeine Consumption? None Information not available 07/13/2023 How Much Tobacco Do You Chew? None Information not available 07/13/2023 In The 14 Days Before Symptom Onset, Have You Had Close Contact With A Laboratory-confirm ed COVID-19 While That Case Was Ill? No Information n ot available 07/13/2023 In The 14 Days Before [...] Of Diet Are You Following? REGULAR Information n ot available 07/13/2023 What Is The Highest Grade Or Level Of School You Have Completed Or The Highest Degree You Have Received? VI30437-1 Information not available 07/13/2023 Are There Any [...] Has Tobacco Cessation Counseling Been Provided? No [email or web address] Information not available 12/28/2023 Have You Used IV Drugs? No Information not available 07/13/2023 Do You Have Difficulty Walking Or Climbing Stairs? No Information not available 11/30/2023 Sex: Unknown Functional Status Question Answer Note LastModified by Organizat ion Details LastModified Time Do you use any illicit or recreational drugs? No Information not available 07/13/2023 Do you or have you ever used any other forms of tobacco or nicotine? No [email or web address] Information not available 12/28/2023 What is your level of alcohol consumption? None Information not available 07/13/2023 Are you able to walk? YESWOREST Information not available 07/13/2023 Are you able to care for yourself? 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 No [email or web address] Information not available 11/30/2023 What is your exercise level? Moderate Information not available 07/13/2023 Mental Status Question Answer Note LastModified by Organization D etails LastModified Time Do you feel stressed (tense, restless, nervous, or anxious, or unable to sleep at night)? AZ06836-9 Information not available 07/13/2023 Family History Relationship Description Onset Age of this Age Resolved Age Notes LastModified by Organization Details LastModified Time Mother Asthma [email or web address] Not available 13:00:34 Maternal Grandfather Diabetes mellitus Not available 12/27 12:19:38 Maternal Grandfather Congestive heart failure [email or web address] Not available 04/2024 15:16:40 Maternal Grandfather Heart disease [email or web address] Not available 12/27 12:20:20 Maternal Grandmother Congestive heart failure [email or web address] Not available 04/2024 15:16:40 Maternal Grandmother Heart disease [email or web address] Not available 12/27 12:20:20 Maternal Aunt Congestive heart failure [email or web address] Not available 04/2024 15:16:40 Maternal Aunt Heart disease [email or web address] Not available 12/27 12:20:20 Maternal Aunt Female infertility [email or web address] Not available 15:16:40 Maternal Uncle Congestive heart failure [email or web address] Not available 04/2024 15:16:40 Maternal Uncle Heart disease [email or web address] Not available 12/27 12:20:20 Medical History Condition Response Allergies (Food, seasonal, environmental ) N Other N Breast Cancer N Drug/Latex Allergies/Reactions N Blood Transfusion N Dermatologic Disorders N Lung Disease N Defects or Inherited Disease N Breast [...] N Thrombophilias N Gynecological History Statement/Question Response Flow Heavy Date of Last Mammogram Date of LMP 06/16/2024 STIs/STDs N HPV Vaccine Y Duration of Flow (days) 5 Current Control Method None Date of Last [...] SNOMED-CT Code Diagnosis ICD10 Code Diagnosis Note [id number] Tushar Claire MD [facility] [address],[place] [address] 06/12/2023 12:33:42 06/12/2023 13:13:23 Uterine size for dates discrepancy 297389192 O26.841 Z3A.08 [id number] ELOISE GALVAN MD [facility] [address],[place] [address] 06/12/2023 12:45:20 06/12/2023 13:46:05 test positive 867730225 Z32.01 1. Exam today within normal limits.2. Ultrasound today confirms GA and viability. EDC . GC/Clamydi a testing done: will f/u as indicated. 4. ACOG guidelines and plan of care for reviewed with patient. All questions answered.5 . Return to office at 12 weeks for new OB visit6. Will need new OB labs at next visit.7. Genetic screening: desires, paperwork given. [id number] Tushar Claire MD [facility] [address],[place] [address] 07/13/2023 11:58:56 07/13/2023 14:29:51 screening 758886761 Z36.82 Gestation period, 12 weeks 30743955 Z3A.12 [id number] ELOISE GALVAN MD [facility] [address],[place] [address] 07/13/2023 11:59:39 07/18/2023 02:54:12 Mixed anxiety and depressive disorder 286665054 F41.8 Gestation period, 13 weeks 30881498 Z3A.13 [id number] Tushar Claire MD [facility] [address],[place] [address] 08/07/2023 14:16:25 08/07/2023 15:25:09 Spotting per vagina in 117244852 O26.852 Z3A.16 [id number] ELOISE GALVAN MD [facility] [address],[place] [address] 08/14/2023 09:53:07 08/14/2023 10:51:46 Dizziness 213081157 R42 Spotting p er vagina in 463886683 O26.859 Gestation period, 17 weeks 12527778 Z3A.17 Mixed anxi ety and depressive disorder 275457986 F41.8 [id number] Tushar Claire MD [facility] [address],[place] [address] 09/04/2023 15:19:00 09/04/2023 16:53:20 screening for malformation 336665993 Z36.3 [id number] ELOISE GALVAN MD [facility] [address],[place] [address] 09/04/2023 15:19:47 09/04/2023 23:12:16 [id number] ELOISE GALVAN MD [facility] [address],[place] [address] 09/10/2023 10:41:06 09/10/2023 11:08:58 Anxiety in 1793925499 9109 F41.9 Marginal i nsertion of umbilical cord 77712138 O43.129 [id number] Tushar Claire MD [facility] [address],[place] [address] 10/05/2023 09:58:45 10/05/2023 10:34:31 Marginal insertion of umbilical cord 69347155 O43.129 Z3A.24 [id number] ELOISE GALVAN MD [facility] [address],[place] [address] 10/05/2023 09:59:32 10/05/2023 11:10:48 Marginal insertion of umbilical cord 92801758 O43.129 Anxiety in 582 9478548 9109 F41.9 Gestation period, 24 weeks 027649868 Z3A.24 [id number] Tushar Claire MD [facility] [address],[place] [address] 10/29/2023 09:35:54 10/29/2023 10:10:24 Marginal insertion of umbilical cord 59317335 O43.129 Z3A.27 [id number] Tushar Claire MD [facility] [address],[place] [address] 10/29/2023 09:38:26 10/29/2023 11:16:32 Routine care 531250712 Z34.92 [id number] Tushar Claire MD [facility] [address],[place] [address] 11/13/2023 09:35:20 11/13/2023 09:58:18 Routine care 983568065 Z34.92 [id number] Tushar Claire MD [facility] [address],[place] [address] 11/30/2023 09:01:40 11/30/2023 09:31:12 Placental condition affecting management of mother 114475936 O43.103 Z3A.32 [id number] [facility] [address],[place] [address] 11/30/2023 09:02:07 11/30/2023 09:58:26 Routine care 616783743 Z34.93 [id number] ELOISE GALVAN MD [facility] [address],[place] [address] 12/14/2023 09:53:41 12/14/2023 10:49:37 Anxiety in 4696797932 9109 F41.9 Marginal i nsertion of umbilical cord 79705028 O43.129 Z3A.27 Gestation period, 34 weeks 55616711 Z3A.34 [id number] Tushar Claire MD [facility] [address],[place] [address] 12/28/2023 11:00:41 12/28/2023 11:47:27 Marginal insertion of umbilical cord 53601416 O43.129 Z3A.36 [id number] [facility] [address],[place] [address] 12/28/2023 11:01:09 12/28/2023 12:34:39 Gestation period, 36 weeks 67163617 Z3A.36 Routine an tenatal care 343850676 Z34.93 Venereal d isease screening 188061727 Z11.3 [id number] Grecia [facility] [address],[place] [address] 01/04/2024 09:59:43 01/04/2024 10:52:59 Routine care 972687236 Z34.93 [id number] Tushar Claire MD [facility] [address],[place] [address] 01/11/2024 10:39:56 01/11/2024 11:07:35 [id number] ELOISE GALVAN MD [facility] [address],[place] [address] 01/11/2024 10:41:13 01/11/2024 11:35:20 Anxiety in 1371769433 9109 F41.9 Marginal i nsertion of umbilical cord 82989030 O43.129 Gestation period, 38 weeks 64137084 Z3A.38 [id number]|2024-08-04 17:29:00|2024-08-04 17:28:00|XMS_ITS|BKG DAEMON|External Medical Summaries|[id number]|" Encounter Summary Created on: August 04, 2024 Shabbir James : 1990 Sex: Female Author Organization [facility] Address [address] [place] [address] Care Team Providers Care Certified Nurse Midwife Name Role Phone Eladio Bhat MD Primary Care Provider + Encounter Details Date Type Department Care Team (Late st Contact Info) Description 08/23/2020 Prep for Procedure [facility] [address] [place] [address] Mingo Solano MD [address] [place] [address] Social History Tobacco Use Types Packs/Day Years [...] Sex Assigned at Female 04/29/2024 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
--- OUTSIDE RECORDS SUMMARY | 2024-08-04 17:29 | XMS_ITS | Encounter Summary ---
Author Organization [facility] Address [facility] [place] [address] Care Team Providers Care Die Assembler Name Role Phone Eladio Garcia MD Primary Care Provider + Encounter Details Date Type Department Care Team (Late st Contact Info) Description 05/23/[address] 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 No / Unsure 05/15/2022 1:54 PM ACADEMIC AFFAIRS SPECIALIST documented as of this encounter Progress Notes * Iraida Reyes MA - 05/24/2022 2:14 PM CST Script sent to Juliana in [place] and patient informed. EMIC AFFAIRS SPECIALIST documented in this encounter Plan of Treatment Not on file documented as of this encounter Visit Diagnoses Not on filedocumented in this encounter Additional Health Concerns Assessment Noted Time PHQ-9 Depression Total Score: 0 02/29/20 10:07 AM ACADEMIC AFFAIRS SPECIALIST documented as of this encounter Care Teams Die Assembler Relationship Specialty Start Date End Date Eladio Garcia MD [address] [address] PCP - General FAMILY PRACTICE 02/08/18 documented as of this encounter
--- OUTSIDE RECORDS SUMMARY | 2024-08-04 17:29 | XMS_ITS | Encounter Summary ---
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
--- NOTE | 2024-08-04 17:31 | ED.FALL ---
HPI - Fall General Chief Complaint: Fall Stated Complaint: Fall Injury/Left Side/Neck Pain/Lower Back Pain Time Seen by Provider: 08/04/24 17:48 Mode of arrival: ambulatory Limitations: no limitations History of Present Illness HPI Narrative: 34-year-old female presents with concern for generalized pain after a fall. Reports yesterday she was at the grocery store when she slipped and fell. Reports she was holding her baby and her right arm and so she fell in her left drainage protect the baby. Reports she had hip pain right away. Reports later in the day she began having low back pain, neck pain, shoulder pain. She reports tightness muscles. She reports she took ibuprofen. She denies any weakness, decreased sensation, strength in any extremity. She denies any open skin. Reports some scattered mild bruising. She denies weakness, loss of bowel or bladder function, perianal anesthesia. complaint: fall Related Data Home Medications Medication Instructions Recorded Confirmed Last Taken Type sertraline 50 mg tablet 50 mg PO DAILY 11/21/23 04/07/24 04/06/24 History vits no.126-ferrous fum 1 tablet PO DAILY 12/19/23 04/07/24 04/04/24 History 28 mg iron-folic acid 800 mcg tablet (Classic ) clonazepam 1 mg tablet 1 mg PO HS 04/01/24 04/07/24 04/06/24 History semaglutide (weight loss) 1.7 mg subcut 08/04/24 Unknown History mg/0.75 mL subcutaneous pen injector (Wegovy) Allergies Allergy/AdvReac Type Severity Reaction Status Date / Time No Known Allergies Allergy Verified 08/04/24 17:41 Review of Systems Review of Systems: CONSTITUTIONAL: Denies malaise, chills, sweats, or fever. CARDIOVASCULAR: Denies chest pain RESPIRATORY: Denies dyspnea. Denies rib pain with deep breathing GASTROINTESTINAL: Denies abdominal pain SKIN: Denies open skin. Reports scattered bruising MUSCULOSKELETAL: Reports bilateral low back pain, left shoulder pain, left, NEUROLOGIC: Denies numbness, weakness, or headache. All systems reviewed & are unremarkable except as noted in HPI and below PMFSH Family History Family History Grandparent Acute myocardial infarction Grandparent Acute myocardial infarction Social History Social History Smoking status: Never smoker Alcohol intake: current Substance use: never Do You Feel Safe in your Home?: Yes Lack of Transportation: No Lack of Food: Never True Current Housing: I Have Housing Concerned About Future Housing: No Difficulty Paying Gas/Electric Bills: No Difficulty Paying for Meds: No Currently Unemployed: No Education: Bachelor's Degree Difficulty w/ Childcare or Family Care: No Living arrangements: with family Spiritual care concerns: No Comments At time of signature, agree with nursing past medical, surgical, social and family history. There is no relevant family history pertinent to the presenting complaint Exam Narrative: GENERAL: Well-appearing, well-nourished, and in no acute distress. HEAD: Normocephalic, atraumatic. EYES: PERRLA, sclera clear ENT: Nares clear. Mucous membranes moist. NECK: Supple. CHEST: No respiratory distress. Speaks in full sentences. HEART: Regular rate and rhythm. No murmur heard. Normal peripheral pulses. ABDOMEN: Soft, nontender, nondistended, normal active bowel sounds, no palpable masses. EXTREMITIES: Bilateral upper lower extremities have Normal range of motion. No edema. Normal strength and sensation. 5/5 strength with hip flexion and extension, dorsiflexion and extension, knee flexion and extension, plantar flexion and extension. Normal sensation in dermatomal distributions with sensitivity to light touch and pain. Lower midline back tenderness to palpation. Left paraspinal tenderness. Transfers from sitting to standing. SKIN: Warm, dry, no rash. No ecchymosis, erythema, open wounds to back. NEURO: No focal deficits. Alert and oriented x3. Normal gait. SKIN: Warm, dry, no visible rash. NEURO: Alert and oriented x3. PSYCH: Normal mood and affect Course Course Emergency Course: Patient is aware of diagnosis, understands and agrees to treatment plan. Anticipatory guidance given. Patient agrees to follow-up as directed and is aware of reasons to seek care at the emergency department. Portions of this record may have been created with voice recognition software Level of Care: Express Care Visit Vital Signs Vital signs: Reviewed. MDM - Fall MDM Narrative Medical decision making narrative: Patients injury and pain is consistent with musculoskeletal etiology. No signs of neurological or vascular compromise on exam. Compartments and tissues are soft without signs of compartment syndrome. Pain is felt appropriate for further evaluation on an outpatient basis. Imaging Data My impression: Images reviewed, interpreted by radiologist, agree, see report. Radiologist's impression: EXAM: XR lumbar spine 2-3V DATE: 08/04/2024 18:11 HISTORY: fall . COMPARISON: None available. FINDINGS: 5 nonrib-bearing lumbar-type vertebral bodies. Pedicles intact. Normal vertebral body alignment. Vertebral body heights preserved. Disc spaces maintained. Normal facets and posterior elements. No fracture or dislocation. IMPRESSION: No acute fracture or traumatic malalignment detected in the lumbar spine. If pain persists, or clinical suspicion of injury is high, recommend CT and/or MRI of the lumbar spine for further evaluation. Critical Care Time Critical Care Time Critical Care Time: No Discharge Plan Discharge Clinical Impression: Muscle pain Patient Disposition: Home Condition: Stable Instructions: Musculoskeletal Pain (ED) Additional Instructions: Your x-ray is normal Please follow up with your Primary Care Doctor within 48-72 hours. Walking and other gentle exercising several times a week has been shown to improve back pain; bed rest is not recommended. Take ketorolac as needed for inflammation, you can alternate with tylenolfor pain, take muscle relaxers every 8 hours as needed for muscle spasm- do not drive or make any important decisions while on this medication for it can make you drowsy. You may apply heat or cold to the area as needed. If you experience any worsening pain, swelling, numbness, weakness please go to ER. Contact your doctor or go to the emergency department if you develop problems with bladder or bowel function, weakness or loss of feeling in one or both of your legs, or any other serious concerns. Patient Language: Italian Prescriptions: New cyclobenzaprine 10 mg tablet 10 mg PO TID PRN (Reason: muscle spasm) Qty: 20 0RF ketorolac 10 mg tablet 10 mg PO Q6H PRN (Reason: pain) 5 Days Qty: 20 0RF No Action Wegovy 1.7 mg/0.75 mL pen injector SUBCUT sertraline 50 mg tablet 50 mg PO DAILY Patient Comments: Says takes at HS Classic 28 mg iron- 800 mcg Tablet 1 tablet PO DAILY Patient Comments: Says takes at HS clonazepam 1 mg tablet 1 mg PO HS Rx Instructions: administer 30 minutes before bedtime Follow-up/Referrals: SUSHILAFREDRICK M.D. [Primary Care Provider] - Stand Alone Forms: Work/School Release IP Time of Disposition: 18:25
[2024-08-04 17:36] VITALS: BP 145/92; PULSE 88; RESP 20; TEMP 36.4; O2SAT 100
== END 2024-08-04 18:30 | disposition home or self-care (01) ==
PROVIDERS: Emergency Provider Nurse Practitioner; PCP Family Medicine
DX: M54.50 Low back pain, unspecified (principal)
CPT/HCPCS: 72100; 99213; G0463